=== PATIENT | female | born 1970 | race Caucasian/White ===

== ENCOUNTER → 2019-06-04 16:12 | Outpatient (CLI) | payer OTHER, SELFPAY ==
--- NOTE | ~2019-06-04 | XR_ITS ---
EXAMINATION: XR abdomen/kub 1V INDICATION: Calculus of kidney TECHNIQUE: Supine views of the abdomen were obtained on 2 radiographs. COMPARISON: 11/14/2018 FINDINGS: There is a 10 mm stone of the right kidney lower pole. No additional urinary tract calculi are identified. The bowel gas pattern is normal. Left pelvic phlebolith is noted. Cholecystectomy cli ps are present at the right upper quadrant. IMPRESSION: 1. Right nephrolithiasis. Reviewed, dictated and finalized at location A. IMPRESSION: 1. Right nephrolithiasis.
== END ==
PROVIDERS: PCP Family Medicine; Visit Provider Urology
DX: N20.0 Calculus of kidney (principal)
CPT/HCPCS: 74018

== ENCOUNTER 2019-06-25 09:46 | Outpatient (CLI) | payer OTHER, SELFPAY ==
[2019-06-25 10:05] LABS: Basophils Percent Auto 0.4 % (0.2-1.2); Eosinophils Absolute Auto 0.2 K/mm3 (0-0.3); Eosinophils Percent Auto 1.9 % (0-4.4); Hematocrit 39.2 % (37.0-47.0); Hemoglobin 12.4 g/dL (12.0-15.0); Immature Granulocyte Absolute 0.04 K/mm3 (0.00-0.031); Immature Granulocyte Percent A 0.4 % (0-0.5); Lymphocytes Percent Auto 26.6 % (18.3-44.2); Mean Corpuscular HGB Conc 31.6 g/dl (32-36); Mean Corpuscular Volume 91.8 fl (80-100); Mean Platelet Volume 10.4 fl (7.4-10.4); Monocytes Absolute Auto 0.8 K/mm3 (0.1-0.6); Neutrophils Absolute Auto 5.9 K/mm3 (1.3-6.7); Neutrophils Percent Auto 62.7 % (45.5-73.1); Platelet Count Result 269 k/mm3 (150-375); Red Blood Count 4.27 M/mm3 (4.2-5.4); Red Cell Distribution Width 13.7 % (11.5-14.5); White Blood Count 9.4 K/mm3 (4.5-10.0)
[2019-06-25 10:12] LABS: Hemoglobin A1C 10.7 % (<5.7)
[2019-06-25 10:20] LABS: Alanine Aminotransferase 22 U/L (4-35); Albumin Level 3.9 g/dL (3.5-5.1); Alkaline Phosphatase 116 U/L (38-126); Aspartate Amino Transferase 37 U/L (14-36); Bilirubin,Total 0.3 mg/dL (0.2-1.3); Blood Urea Nitrogen 12 mg/dL (7-17); Carbon Dioxide 26 mmol/L (22-30); Chloride 99 mmol/L (98-107); Cholesterol 183 mg/dL (0-200); Estimated Glomerular Filt Rate > 60; Glucose 237 mg/dL (65-105); HDL Direct 43 mg/dL; Potassium 4.3 mmol/L (3.4-5.0); Sodium 134 mmol/L (137-145); Triglycerides 226 mg/dL (<150)
[2019-06-25 10:31] LABS: LDL Cholesterol Direct 109 mg/dL
== END 2019-06-25 09:47 | disposition home or self-care (01) ==
PROVIDERS: PCP Family Medicine; Visit Provider Family Medicine
DX: E78.5 Hyperlipidemia, unspecified (principal); Z13.0 Encounter for screening for diseases of the blood and blood-forming organs and certain disorders involving the immune mechanism; E11.9 Type 2 diabetes mellitus without complications; E11.21 Type 2 diabetes mellitus with diabetic nephropathy; E03.8 Other specified hypothyroidism; E06.3 Autoimmune thyroiditis
CPT/HCPCS: 36415; 80053; 80061; 83036; 84443; 85025

== ENCOUNTER 2019-08-12 16:48 | Emergency (ER) | payer OTHER, SELFPAY ==
[2019-08-12] VITALS (9 sets, daily range): BP systolic 138–164; BP diastolic 72–95; PULSE 106–200; RESP 13–22; TEMP 36.7; O2SAT 94–100
--- NOTE | ~2019-08-12 | XR_ITS ---
EXAMINATION: XR chest 1V portable DATE: 08/12/2019 17:28 INDICATION: Supraventricular tachycardia with heart palpitations. TECHNIQUE: frontal view of the chest was obtained. COMPARISON: Chest radiograph dated 03/17/2013 FINDINGS: The lungs remain clear with no focal airspace opacities, pulmonary edema, pleural effusion or pneumot horax. The cardiomediastinal silhouette is normal. Visualized bones and soft tissues are unremarkable . IMPRESSION: 1. No acute cardiopulmonary disease. Reviewed, dictated and finalized at location A.
[2019-08-12] MEDS: ADENOSINE IV SOLN 6 MG/2 ML VIAL 18 MG (16:56)
--- NOTE | 2019-08-12 17:01 | ECG_ITS ---
Measurements Intervals [place] Rate: 128 P: 66 AR: 161 QRS: 19 QRSD: 103 T: -2 QT: 298 QTc: 436 Interpretive Statements SINUS TACHYCARDIA INCOMPLETE RIGHT BUNDLE BRANCH BLOCK BORDERLINE T WAVE ABNORMALITY- ANT/INF LEADS BASELINE ARTIFACT- II, III, AVF, V3, V6 ABNORMAL ECG Electronically Signed On 08-12-2019 17:14:21 CDT by Vamsi Troncoso D.O.
[2019-08-12] MEDS: SODIUM CHLORIDE 0.9% IV 1,000 ML 999 ML (17:03)
--- NOTE | 2019-08-12 17:07 | ED.CHESTPAIN ---
HPI - Chest Pain General Chief Complaint: Chest Pain Stated Complaint: chest pain Time Seen by Provider: 08/12/19 16:53 History of Present Illness HPI narrative: Patient presents to the ED, with her son, for fast heart rate. She has a history of SVT. She says it causes discomfort but not pain. Started an hour ago. She denies shortness of breath with this. She has a history of hypertension and diabetes. Her blood sugar runs between 150 and 170. She is not on insulin. 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 Related Data Home Medications Medication Instructions Recorded Confirmed losartan 100 mg tablet 100 mg PO DAILY 06/11/19 Allergies Allergy/AdvReac Type Severity Reaction Status Date / Time No Known Allergies Allergy Verified 08/12/19 17:03 Review of Systems Review of Systems: Narrative: CONSTITUTIONAL: Denies fever, chills, or sweats. EYES: Denies visual changes, redness, or discharge. ENT: Denies rhinorrhea, congestion, sore throat, or otalgia. CARDIOVASCULAR: Denies chest pain, but does have palpitations. RESPIRATORY: Denies cough or dyspnea. GASTROINTESTINAL: Denies abdominal pain, nausea, vomiting, or diarrhea. GENITOURINARY: Denies dysuria or hematuria. SKIN: Denies rash or itching. MUSCULOSKELETAL: Denies back pain, joint pain, or myalgia. NEUROLOGIC: Denies headache, numbness, or weakness. PSYCHIATRIC: Denies anxiety or depression. [facility] Past Medical History Medical History (Updated 08/12/19 @ 17:12 by Sandy Genao MD) Hyperlipidemia Nonalcoholic steatohepatitis ([place]) SVT (supraventricular tachycardia) Type 2 diabetes mellitus without complications Family History Family History Mother Hypertension Family history of rheumatoid arthritis Father Family history of colitis Family history of diabetes mellitus in first degree relative Family history of ulcerative colitis Family history of type 2 diabetes mellitus Grandparent Hypertension Family history of malignant neoplasm Family history of malignant melanoma Family history of malignant neoplasm of breast in first degree relative Family history of malignant neoplasm of ovary Social History Social History Smoking status: Never smoker Second hand tobacco smoke exposure: No Alcohol intake: current Gender identity (if verbalized by the patient): Female Exam Narrative: Exam Narrative: GENERAL: Well-appearing, well-nourished, and in no acute distress. Overweight HEAD: Normocephalic, atraumatic. EYES: PERRLA and EOMI. ENT: Nares clear, no rhinorrhea or epistaxis. Mucous membranes moist. NECK: Supple. CHEST: Clear to auscultation. No respiratory distress. HEART: Regular rate and rhythm. No murmur heard. Normal peripheral pulses. ABDOMEN: Soft, nontender, nondistended, normal active bowel sounds. EXTREMITIES: Normal range of motion. No edema. SKIN: Warm, dry, no rash. NEURO: No focal deficits. Alert and oriented x3. PSYCH: Normal mood and affect. Course Reevaluation(s) Reevaluation #1: She is feeling much better, and she thinks she may have had a little bit of SVT in the last couple years. She has not seen the wet sander for many years. She is on metoprolol for prevention. I recommend that she either follow-up with her old wet sander or see a new one here, and she would prefer to follow here. Her son will drive her home. She is not working currently and does not need a work note. Date: 08/12/19 Time: 17:59 Vital Signs Vital signs: Vital Signs Temperature 98.1 F 08/12/19 16:53 Pulse Rate 200 H 08/12/19 16:53 Respiratory Rate 18 08/12/19 16:53 Blood Pressure 138/95 H 08/12/19 16:53 Pulse Oximetry 94 08/12/19 16:53 Temperature 98.1 F 08/12/19 16:53 Pulse Rate 112 H 08/12/19 17:16 Respiratory Rate 19 08/12/19 17:16 Blood Pressure 143/83 H
--- NOTE | 2019-08-12 17:13 | PC.NURSE ---
Pt was washing dishes and watching the walking and started to feel dizzy, sweaty, and have chest pressure. Pt states she had SVT a couple years ago but refused ablation. Pt HR 220 on arrival. Pt given 12 adenosine and HR now 110. Pt states she no longer has pressure, palpitations, dizziness, or SOB. Pt is A&Ox4. Pt has family at bedside. Pt has call light in reach
[2019-08-12 17:22] LABS: Basophils Percent Auto 0.4 % (0.2-1.2); Eosinophils Absolute Auto 0.1 K/mm3 (0-0.3); Eosinophils Percent Auto 1.4 % (0-4.4); Hematocrit 43.9 % (37.0-47.0); Hemoglobin 14.1 g/dL (12.0-15.0); Immature Granulocyte Absolute 0.04 K/mm3 (0.00-0.031); Immature Granulocyte Percent A 0.4 % (0-0.5); Lymphocytes Absolute Auto 4.15 K/mm3 (0.9-3.2); Lymphocytes Percent Auto 40.1 % (18.3-44.2); Mean Corpuscular HGB Conc 32.1 g/dl (32-36); Mean Corpuscular Hemoglobin 29.2 pg (26-34); Mean Corpuscular Volume 90.9 fl (80-100); Mean Platelet Volume 10.5 fl (7.4-10.4); Monocytes Percent Auto 9.2 % (2.6-8.5); Neutrophils Percent Auto 48.5 % (45.5-73.1); Platelet Count Result 297 k/mm3 (150-375); Red Blood Count 4.83 M/mm3 (4.2-5.4); Red Cell Distribution Width 13.8 % (11.5-14.5); White Blood Count 10.3 K/mm3 (4.5-10.0)
[2019-08-12 17:30] LABS: Partial Thromboplastin Time 40.8 SECONDS (22.3-36.8)
[2019-08-12 17:34] LABS: Alanine Aminotransferase 22 U/L (4-35); Albumin Level 4.5 g/dL (3.5-5.1); Alkaline Phosphatase 149 U/L (38-126); Aspartate Amino Transferase 24 U/L (14-36); Bilirubin,Total 0.5 mg/dL (0.2-1.3); Blood Urea Nitrogen 13 mg/dL (7-17); Calcium 9.7 mg/dL (8.4-10.2); Carbon Dioxide 24 mmol/L (22-30); Chloride 102 mmol/L (98-107); Estimated CRCL calculation 129 ml/min; Estimated Glomerular Filt Rate > 60; Glucose 217 mg/dL (65-105); Potassium 3.7 mmol/L (3.4-5.0); Sodium 137 mmol/L (137-145)
[2019-08-12 17:45] LABS: NT Pro B Type Natriuretic Pept 102 PG/ML (5-100); Troponin I < 0.012 ng/mL (0.000-0.034)
== END 2019-08-12 18:16 | disposition home or self-care (01) ==
PROVIDERS: Emergency Provider Emergency Medicine; PCP Family Medicine
DX: I47.1 Supraventricular tachycardia (principal); I45.10 Unspecified right bundle-branch block; E78.5 Hyperlipidemia, unspecified; K75.81 Nonalcoholic steatohepatitis (NASH); E11.9 Type 2 diabetes mellitus without complications
CPT/HCPCS: 36415; 71045; 80053; 83880; 84484; 85025; 85610; 85730; 93005; 96361; 96374; 99284; J0153; J7030

== ENCOUNTER 2019-08-23 14:20 | Outpatient (CLI) | payer OTHER, SELFPAY ==
[2019-08-23 16:20] LABS: Magnesium 1.9 mg/dL (1.6-2.3)
[2019-08-23 16:49] LABS: Free T4 Free Thyroxine 1.99 ng/mL (0.78-2.19)
[2019-08-27 12:35] LABS: Triiodothyronine T3 Free 2.7 pg/mL (2.3-4.2)
== END 2019-08-23 14:21 | disposition home or self-care (01) ==
PROVIDERS: PCP Family Medicine; Visit Provider Family Medicine
DX: E03.9 Hypothyroidism, unspecified (principal); I47.1 Supraventricular tachycardia
CPT/HCPCS: 36415; 83735; 84439; 84443; 84481

== ENCOUNTER 2019-11-14 07:05 | Outpatient (CLI) | payer OTHER, SELFPAY ==
[2019-11-14 08:09] LABS: Alanine Aminotransferase 15 U/L (4-35); Albumin Level 3.8 g/dL (3.5-5.1); Alkaline Phosphatase 111 U/L (38-126); Anion Gap 7 mmol/L (8-16); Aspartate Amino Transferase 19 U/L (14-36); Bilirubin,Total 0.3 mg/dL (0.2-1.3); Blood Urea Nitrogen 11 mg/dL (7-17); Calcium 8.8 mg/dL (8.4-10.2); Carbon Dioxide 25 mmol/L (22-30); Chloride 103 mmol/L (98-107); Cholesterol 153 mg/dL (0-200); Estimated Glomerular Filt Rate > 60; Glucose 189 mg/dL (65-105); HDL Direct 42 mg/dL; Potassium 4.2 mmol/L (3.4-5.0); Sodium 135 mmol/L (137-145); Triglycerides 171 mg/dL (<150)
[2019-11-14 08:19] LABS: LDL Cholesterol Direct 80 mg/dL
== END 2019-11-14 07:06 | disposition home or self-care (01) ==
LOC: ANHLAB 07:07
PROVIDERS: PCP Family Medicine; Visit Provider Internal Medicine Cardiovascular Disease
DX: E78.5 Hyperlipidemia, unspecified (principal)
CPT/HCPCS: 36415; 80053; 80061

== ENCOUNTER 2020-04-24 20:02 | Emergency (ER) | payer OTHER, SELFPAY ==
--- NOTE | ~2020-04-24 | XR_ITS ---
EXAMINATION: XR chest 2V DATE: 04/24/2020 20:47 INDICATION: Palpitations. TECHNIQUE: Frontal and lateral views of the chest were obtained. COMPARISON: Chest single view 08/12/2019 FINDINGS: The chest demonstrates clear lungs without pneumonia, pleural effusion, or pneumothorax. Th e heart size is normal. Surgical clips in the right upper quadrant are likely from cholecystectomy. IMPRESSION: 1. No acute cardiopulmonary disease. Reviewed, dictated and finalized at location A.
[2020-04-24 20:05] VITALS: BP 190/101; PULSE 210; RESP 26; TEMP 36.1; O2SAT 99
[2020-04-24 20:10] VITALS: BP 173/108; PULSE 126; RESP 18; O2SAT 99
--- NOTE | 2020-04-24 20:11 | ECG_ITS ---
Measurements Intervals [place] Rate: 121 P: 20 FL: 158 QRS: 28 QRSD: 102 T: 30 QT: 301 QTc: 428 Interpretive Statements SINUS TACHYCARDIA INCOMPLETE RIGHT BUNDLE BRANCH BLOCK BORDERLINE ST ABNORMALITY- ANTEROLATERAL LEADS BASELINE ARTIFACT- II, III, AVF ABNORMAL ECG Electronically Signed On 04-24-2020 21:19:10 [employer] by Vamsi Troncoso D.O.
[2020-04-24 20:20] LABS: Basophils Absolute Auto 0.1 K/mm3 (0.0-0.1); Basophils Percent Auto 0.5 % (0.2-1.2); Eosinophils Absolute Auto 0.4 K/mm3 (0-0.3); Hematocrit 49.3 % (37.0-47.0); Immature Granulocyte Absolute 0.03 K/mm3 (0.00-0.031); Immature Granulocyte Percent A 0.2 % (0-0.5); Lymphocytes Absolute Auto 4.82 K/mm3 (0.9-3.2); Lymphocytes Percent Auto 40.1 % (18.3-44.2); Mean Corpuscular HGB Conc 32.5 g/dl (32-36); Mean Corpuscular Hemoglobin 29.5 pg (26-34); Mean Corpuscular Volume 90.8 fl (80-100); Mean Platelet Volume 10.1 fl (7.4-10.4); Monocytes Percent Auto 8.1 % (2.6-8.5); Neutrophils Absolute Auto 5.8 K/mm3 (1.3-6.7); Neutrophils Percent Auto 48.1 % (45.5-73.1); Platelet Count Result 264 k/mm3 (150-375); Red Blood Count 5.43 M/mm3 (4.2-5.4); Red Cell Distribution Width 14.3 % (11.5-14.5)
[2020-04-24 20:29] LABS: INR 0.9; Prothrombin Time 12.4 Seconds (11.1-14.7)
[2020-04-24 20:30] LABS: Partial Thromboplastin Time 27.5 SECONDS (22.3-36.8)
[2020-04-24 20:34] LABS: Anion Gap 12 mmol/L (8-16); Blood Urea Nitrogen 15 mg/dL (7-17); Calcium 9.6 mg/dL (8.4-10.2); Carbon Dioxide 23 mmol/L (22-30); Chloride 103 mmol/L (98-107); Estimated CRCL calculation 141 ml/min; Estimated Glomerular Filt Rate > 60; Glucose 153 mg/dL (65-105); Potassium 3.4 mmol/L (3.4-5.0); Sodium 138 mmol/L (137-145)
[2020-04-24 20:45] LABS: Troponin I < 0.012 ng/mL (0.000-0.034)
[2020-04-24] MEDS: ASPIRIN 81 MG CHEWABLE TABLET 324 MG PO (20:56)
[2020-04-24] MEDS: SODIUM CHLORIDE 0.9% IV 1,000 ML 999 ML IV CONT (20:56)
[2020-04-24 21:00] VITALS: BP 145/89; PULSE 108; RESP 16; O2SAT 95
--- NOTE | 2020-04-24 21:27 | ED.ARRPALP ---
HPI - Arrhythmia/Palpitations General Chief Complaint: Arrhythmia/Palpitations Stated Complaint: rapid heart rate/ SVT history Time Seen by Provider: 04/24/20 20:16 History of Present Illness HPI narrative: Patient is a 50-year-old female who presents ER with racing the heart. Patient has history of SVT. She reports that her heart rate was going into the 200s and this began around 7:30 PM. Lasted for about an hour. Was still persisting when she arrived here. [place] like she was having central chest pressure. Denies overuse of stimulant medication or caffeine. Takes metoprolol and reports she did take a little bit later in the day than what is normal for her. She has no runny nose/sore throat/productive cough. No other issues. Related Data Home Medications Medication Instructions Recorded Confirmed aspirin 81 mg tablet,delayed 81 mg PO DAILY 09/12/19 12/05/19 release vitamins A,C,V-xxev-nmsrzg 7,160 2 tablet PO BID 09/12/19 12/05/19 unit-113 mg-100 unit tablet ethynodiol diacetate-ethinyl 1 tablet PO DAILY 11/14/19 12/05/19 estradiol 1 mg-35 mcg tablet omega-3 fatty acids 1,000 mg 1,000 mg PO DAILY 11/14/19 12/05/19 capsule Allergies Allergy/AdvReac Type Severity Reaction Status Date / Time KAREN Inhibitors Allergy angioedema Verified 04/24/20 20:11 Review of Systems Review of Systems: All systems reviewed & are unremarkable except as noted in HPI and below Constitutional: Constitutional: Denies chills, Denies fever(s) and Denies weakness ENT: Denies nasal congestion and Denies sore throat Cardiovascular: Cardiovascular: Reports chest pain, Reports rapid heart rate and Denies radiating jaw, neck or arm pain Respiratory: Respiratory: Denies cough, Denies dyspnea and Denies wheezing [facility] Past Medical History Medical History (Updated 04/24/20 @ 22:33 by Oumar Singleton MD) Hyperlipidemia Nonalcoholic steatohepatitis ([place]) SVT (supraventricular tachycardia) Type 2 diabetes mellitus without complications Family History Family History Mother Hypertension Family history of rheumatoid arthritis Father Family history of colitis Family history of diabetes mellitus in first degree relative Family history of ulcerative colitis Family history of type 2 diabetes mellitus Grandparent Hypertension Family history of malignant neoplasm Family history of malignant melanoma Family history of malignant neoplasm of breast in first degree relative Family history of malignant neoplasm of ovary Social History Social History Smoking status: Former smoker Second hand tobacco smoke exposure: No Alcohol intake: current Gender identity (if verbalized by the patient): Female Exam Narrative: Exam Narrative: GENERAL: Well-appearing, well-nourished, and in no acute distress. HEAD: Normocephalic, atraumatic. CHEST: Clear to auscultation. No respiratory distress. HEART: Tachycardic and regular. Normal peripheral pulses. ABDOMEN: Soft, nontender, nondistended. EXTREMITIES: Normal range of motion. No edema. SKIN: Warm, dry, no rash. NEURO: Alert and oriented x3. PSYCH: Normal mood and affect. Course Course Emergency Course: Discussed with Dr. Troncoso. D/c. Start metoprolol 100mg daily. Pt verbalized understanding an has enough meds to do this w/o a refill. Vital Signs Vital signs: Vital Signs Temperature 96.9 F L 04/24/20 20:05 Pulse Rate 210 H 04/24/20 20:05 Respiratory Rate 26 H 04/24/20 20:05 Blood Pressure 190/101 H 04/24/20 20:05 Pulse Oximetry 99 04/24/20 20:05 Temperature 96.9 F L 04/24/20 20:05 Pulse Rate 104 H 04/24/20 22:12 Respiratory Rate 17 04/24/20 22:12 Blood Pressure 126/88 04/24/20 22:12 Pulse Oximetry 96 04/24/20 22:12 MDM - Arrhythmia/Palpitations Lab Data Result diagrams: 04/24/20 20:15 04/24/20 20:15
[2020-04-24 22:12] VITALS: BP 126/88; PULSE 104; RESP 17; O2SAT 96
[2020-04-24 22:51] VITALS: BP 138/74; PULSE 98; RESP 16; O2SAT 99
== END 2020-04-24 22:51 | disposition home or self-care (01) ==
PROVIDERS: Emergency Medicine; Emergency Provider Emergency Medicine; PCP Family Medicine
DX: I47.1 Supraventricular tachycardia (principal); E78.5 Hyperlipidemia, unspecified; K75.81 Nonalcoholic steatohepatitis (NASH); E11.9 Type 2 diabetes mellitus without complications; Z87.891 Personal history of nicotine dependence; Z79.82 Long term (current) use of aspirin; I45.10 Unspecified right bundle-branch block; R94.31 Abnormal electrocardiogram [ECG] [EKG]
CPT/HCPCS: 36415; 71046; 80048; 84484; 85025; 85610; 85730; 93005; 96360; 99284; A9270; J7030

== ENCOUNTER 2020-06-23 15:46 | Outpatient (CLI) | payer OTHER, SELFPAY ==
--- NOTE | ~2020-06-23 | MM_ITS ---
EXAMINATION: MM screening delma BI w chiquita HISTORY: Screening mammogram TECHNIQUE: Craniocaudal and mediolateral oblique 3-D tomosynthesis images were obtained and synthetic 2-D images were generated. CAD analysis was submitted and interpreted. COMPARISON: 05/08/2018 diagnostic right mammogram and limited right breast ultrasound 10/11/2017 diagnostic right mammogram and limited right breast ultrasound 09/26/2017 bilateral digital screening mammogram BREAST PARENCHYMAL COMPOSITION: There are scattered areas of fibroglandular density. FINDINGS: Approximately 5 x 7 mm circumscribed low-density opacity in the outer mid left breast poste riorly, likely a benign intramammary lymph node, stable since 09/26/2017. There is question of mildly increased density in the outer right breast on craniocaudal view; diagnos tic right mammogram is recommended, with ultrasound if required. There is no evidence of suspicious mass, calcification, or architectural distortion to suggest malign janine in either breast. There has been no suspicious interval change. IMPRESSION: 1. Right breast possible mildly increased outer breast density on CC view. 2. Diagnostic right mammogram is recommended, with ultrasound if required. BI-RADS Category 0: Incomplete: Needs additional imaging evaluation. Reviewed, dictated and finalized at location A.
== END 2020-06-23 15:47 | disposition home or self-care (01) ==
PROVIDERS: PCP Family Medicine; Visit Provider Obstetrics & Gynecology
DX: Z12.31 Encounter for screening mammogram for malignant neoplasm of breast (principal); R92.8 Other abnormal and inconclusive findings on diagnostic imaging of breast
CPT/HCPCS: 77063; 77067

== ENCOUNTER 2020-07-16 13:06 | Outpatient (CLI) | payer OTHER, SELFPAY ==
--- NOTE | ~2020-07-16 | MMUS_ITS ---
EXAMINATION: MM diagnostic mammo unilat RT, US breast RT complete HISTORY: Follow-up right breast asymmetry TECHNIQUE: Additional 3-D tomosynthesis images of the right breast were performed and synthetic 2-D i mages were generated. CAD analysis was submitted and interpreted. High resolution complete right mehdi st ultrasound was performed. COMPARISON: Comparison to multiple prior studies sequentially, with oldest reviewed study dated 09/26. BREAST PARENCHYMAL COMPOSITION: The breasts are heterogenously dense, which may obscure small masses. FINDINGS: MAMMOGRAPHIC FINDINGS: Focal asymmetry in the upper outer quadrant of the left breast is less dense with spot compression vi ews, most likely superimposed fibroglandular tissue. No discrete mass or architectural distortion. No suspicious calcifications. ULTRASOUND: Complete right breast ultrasound: At 3:00, 2 cm from the nipple, there is a 3 mm cyst. No suspicious solid masses are identified to suggest malignancy. IMPRESSION: 1. No evidence for malignancy in the right breast. 2. Routine yearly screening mammogram and regular clinical breast examination are recommended. BI-RADS Category 2: Benign finding(s). Reviewed, dictated and finalized at location A. IMPRESSION: 1. No evidence for malignancy in the right breast. 2. Routine yearly screening mammogram and regular clinical breast examination a re recommended. BI-RADS Category 2: Benign finding(s).
== END 2020-07-16 13:07 | disposition home or self-care (01) ==
PROVIDERS: PCP Family Medicine; Visit Provider Family Medicine
DX: R92.8 Other abnormal and inconclusive findings on diagnostic imaging of breast (principal)
CPT/HCPCS: 76641; 77065

== ENCOUNTER 2020-08-17 09:12 | Outpatient (CLI) | payer OTHER, SELFPAY ==
--- NOTE | 2020-09-07 13:18 | WPDHOMESLEEP ---
Sleep Study - Home Unattended Date of Study: 08/17/20 Ordering Provider: Vamsi Troncoso DO Interpreting Provider: Delmy Hooks MD Home Sleep Study Type: Watch PAT Height: 1.7 m Weight: 115.666 kg Body Mass Index: 39.9 Neck Circumference (inches): 15.75 [place]: 10 Reason for Sleep Study Hypersomnia; SVT Sleep History Radha Spencer is a 50 year old female with supraventricular tachycardia and she is referred by her complaint coordinator. There is a family history of sleep apnea with her brother diagnosed several months ago. She does not awaken from sleep feeling short of breath. She rarely awakens at night with heartburn, belching or coughing. She occasionally snores. Rarely it is loud enough for others to complain about it. She occasionally has trouble sleep with a cold. She does not wake up gasping for breath at night and does not have breathing problems at night observed by others. She rarely sweats excessively at night. She does not notice her heart pounding or beating irregularly at night. She occasionally falls asleep during the day, never falls asleep involuntarily and never falls asleep while driving. She does not have loss of muscle tone with strong emotion. She rarely has daytime difficulties due to excessive sleepiness. She does not feel paralyzed on waking or falling asleep. She frequently has vivid dreamlike scenes upon awakening or falling asleep. She does not feel afraid to go to sleep. She occasionally has nightmares, remembers her dreams, and has racing thoughts. She does not feel sad or depressed. She occasionally has anxiety. She rarely has muscular tension. She does not notice parts of her body jerking. She rarely kicks at night. She does not have crawling and aching feelings in her legs. She rarely has any kind of leg pain at night. She does not have morning jaw pain. She does not currently grind her teeth. She did this in childhood. She occasionally has bothered by pain during the day, rarely awakened by pain at night. She frequently wakes up feeling stiff in the morning rarely with sore achy muscles, occasionally with pain in the neck and spine. She has bowel disturbances. Normal bedtime is between 11:00 p.m. and 11:30 p.m. taking a 1/2 hour to fall asleep typically waking 3-4 times at night to use the bathroom and change positions. She is able to return to sleep and 10 minutes but sometimes is takes up to an hour. Her weekend schedule shows the same bedtime 11:00 p.m. to 11:30 p.m. and waking between 8 and 9:00 a.m.. She estimates getting between 6 and 7 hours of sleep at night. She occasionally takes a nap in the day. She may feel refreshed after short nap. Most of the times he feels good in the morning. She feels better in the morning compared other times of day. Habits: Caffeine 1-2 per day. Alcohol socially and rarely. No recreational substance use. [facility] Past Medical History Medical History (Updated 09/07/20 @ 13:46 by Delmy Hooks MD) Hyperlipidemia Hypersomnia Nonalcoholic steatohepatitis ([place]) SVT (supraventricular tachycardia) Type 2 diabetes mellitus without complications Surgical History Surgical History Cholecystitis H/O dilation and curettage Kidney stones Family History Family History Mother Hypertension Family history of rheumatoid arthritis Father Family history of colitis Family history of diabetes mellitus in first degree relative Family history of ulcerative colitis Family history of type 2 diabetes mellitus Grandparent Hypertension Family history of malignant neoplasm Family history of malignant melanoma Family history of malignant neoplasm of breast in first degree relative Family history of malignant neoplasm of ovary Social History Social History Smoking status: Former smo
[2020-09-07 13:50] VITALS: BMI 39.9
== END 2020-08-18 11:38 | disposition home or self-care (01) ==
LOC: ANHCSM 09:14
PROVIDERS: PCP Family Medicine; Visit Provider Internal Medicine Cardiovascular Disease
DX: G47.10 Hypersomnia, unspecified (principal)
CPT/HCPCS: 95800

== ENCOUNTER 2021-05-24 08:05 | Outpatient (CLI) | payer OTHER, SELFPAY ==
[2021-05-24 08:36] LABS: Cholesterol 205 mg/dL (0-200); HDL Direct 43 mg/dL; Triglycerides 211 mg/dL (<150)
[2021-05-24 08:47] LABS: LDL Cholesterol Direct 124 mg/dL
== END 2021-05-24 08:06 | disposition home or self-care (01) ==
LOC: ANHLAB 08:08
PROVIDERS: PCP Family Medicine; Visit Provider Internal Medicine Cardiovascular Disease
DX: E78.5 Hyperlipidemia, unspecified (principal)
CPT/HCPCS: 36415; 80061

== ENCOUNTER 2021-06-12 10:17 | Outpatient (CLI) | payer OTHER, SELFPAY ==
[2021-06-12 10:52] LABS: Basophils Percent Auto 0.4 % (0.2-1.2); Eosinophils Absolute Auto 0.1 K/mm3 (0-0.3); Eosinophils Percent Auto 1.3 % (0-4.4); Hematocrit 45.8 % (37.0-47.0); Hemoglobin 14.7 g/dL (12.0-15.0); Immature Granulocyte Absolute 0.02 K/mm3 (0.00-0.031); Immature Granulocyte Percent A 0.3 % (0-0.5); Lymphocytes Absolute Auto 2.59 K/mm3 (0.9-3.2); Lymphocytes Percent Auto 34.4 % (18.3-44.2); Mean Corpuscular HGB Conc 32.1 g/dl (32-36); Mean Corpuscular Hemoglobin 29.9 pg (26-34); Mean Corpuscular Volume 93.3 fl (80-100); Mean Platelet Volume 10.1 fl (7.4-10.4); Monocytes Absolute Auto 0.9 K/mm3 (0.1-0.6); Monocytes Percent Auto 11.3 % (2.6-8.5); Neutrophils Percent Auto 52.3 % (45.5-73.1); Platelet Count Result 275 k/mm3 (150-375); Red Blood Count 4.91 M/mm3 (4.2-5.4); Red Cell Distribution Width 13.8 % (11.5-14.5); White Blood Count 7.5 K/mm3 (4.5-10.0)
[2021-06-12 11:05] LABS: Hemoglobin A1C 7.5 % (<5.7)
[2021-06-12 11:07] LABS: Alanine Aminotransferase 60 U/L (4-35); Albumin Level 4.5 g/dL (3.5-5.1); Alkaline Phosphatase 92 U/L (38-126); Anion Gap 7 mmol/L (8-16); Aspartate Amino Transferase 52 U/L (14-36); Bilirubin,Total 0.4 mg/dL (0.2-1.3); Blood Urea Nitrogen 14 mg/dL (7-17); Calcium 8.9 mg/dL (8.4-10.2); Carbon Dioxide 27 mmol/L (22-30); Chloride 103 mmol/L (98-107); Cholesterol 190 mg/dL (0-200); Estimated Glomerular Filt Rate > 60; Glucose 163 mg/dL (65-110); HDL Direct 48 mg/dL; Potassium 4.2 mmol/L (3.4-5.0); Sodium 137 mmol/L (137-145); Triglycerides 170 mg/dL (<150)
[2021-06-12 11:17] LABS: LDL Cholesterol Direct 99 mg/dL
[2021-06-12 11:28] LABS: Creatinine Urine 42.1 mg/dL
[2021-06-12 11:32] LABS: MALB Creatinine Ratio 25.9 mg/g (0-30); Microalbumin Urine Random 10.9 mg/L (0-16.7)
[2021-06-12 11:36] LABS: Thyroid Stimulating Hormone 0.363 uIU/mL (0.465-4.680)
== END 2021-06-12 10:18 | disposition home or self-care (01) ==
LOC: ANHLAB 10:19
PROVIDERS: PCP Family Medicine; Visit Provider Family Medicine
DX: E78.5 Hyperlipidemia, unspecified (principal); D72.829 Elevated white blood cell count, unspecified
CPT/HCPCS: 36415; 80053; 80061; 82043; 83036; 84443; 85025

== ENCOUNTER 2021-10-06 08:38 | Outpatient (CLI) | payer OTHER, SELFPAY ==
[2021-10-06 19:42] LABS: Urine Cotinine NEGATIVE
== END 2021-10-06 08:39 | disposition home or self-care (01) ==
LOC: ANHEH 08:40
PROVIDERS: PCP Family Medicine
DX: Z02.1 Encounter for pre-employment examination (principal)
CPT/HCPCS: 80307

== ENCOUNTER 2021-10-22 13:23 | Outpatient (CLI) | payer OTHER, SELFPAY ==
--- NOTE | ~2021-10-22 | MM_ITS ---
EXAMINATION: MM screening delma BI w chiquita HISTORY: Screening TECHNIQUE: Craniocaudal and mediolateral oblique 3-D tomosynthesis images were obtained and synthetic 2-D images were generated. CAD analysis was submitted and interpreted. COMPARISON: No prior mammogram is available for comparison at this institution. BREAST PARENCHYMAL COMPOSITION: There are scattered areas of fibroglandular density. FINDINGS: There is no evidence of suspicious mass, calcification, or architectural distortion to sugg est malignancy in either breast. There has been no suspicious interval change. IMPRESSION: 1. No mammographic evidence of malignancy. 2. Recommend routine screening mammography in one year. BI-RADS Category 1: Negative Reviewed, dictated and finalized at location A.
== END 2021-10-22 13:24 | disposition home or self-care (01) ==
LOC: ANHIMG 13:28
PROVIDERS: PCP Family Medicine; Visit Provider Obstetrics & Gynecology
DX: Z12.31 Encounter for screening mammogram for malignant neoplasm of breast (principal)
CPT/HCPCS: 77063; 77067

== ENCOUNTER 2021-11-16 08:31 | Outpatient (CLI) | payer OTHER, SELFPAY ==
[2021-11-16 09:12] LABS: Alanine Aminotransferase 27 U/L (6-35); Alanine Aminotransferase 28 U/L (6-35); Alkaline Phosphatase 102 U/L (38-126); Alkaline Phosphatase 104 U/L (38-126); Anion Gap 10 mmol/L (8-16); Aspartate Amino Transferase 32 U/L (14-36); Aspartate Amino Transferase 33 U/L (14-36); Bilirubin,Total 0.4 mg/dL (0.2-1.3); Blood Urea Nitrogen 12 mg/dL (7-17); Calcium 8.7 mg/dL (8.4-10.2); Carbon Dioxide 24 mmol/L (22-30); Chloride 103 mmol/L (98-107); Cholesterol 172 mg/dL (0-200); Estimated Glomerular Filt Rate > 60; Glucose 204 mg/dL (65-110); HDL Direct 45 mg/dL; Potassium 4.2 mmol/L (3.4-5.0); Sodium 137 mmol/L (137-145); Triglycerides 194 mg/dL (<150)
[2021-11-16 09:23] LABS: LDL Cholesterol Direct 99 mg/dL
== END 2021-11-16 08:32 | disposition home or self-care (01) ==
PROVIDERS: PCP Family Medicine; Visit Provider Internal Medicine Cardiovascular Disease
DX: E78.5 Hyperlipidemia, unspecified (principal); R94.5 Abnormal results of liver function studies
CPT/HCPCS: 36415; 80053; 80061; 80076

== ENCOUNTER 2022-05-23 09:45 | Outpatient (CLI) | payer OTHER, SELFPAY ==
[2022-05-23 14:13] LABS: Hemoglobin A1C 8.2 % (<5.7)
== END 2022-05-23 09:46 | disposition home or self-care (01) ==
LOC: ANHLAB 09:47
PROVIDERS: PCP Family Medicine; Visit Provider Family Medicine
DX: E03.8 Other specified hypothyroidism (principal); E06.9 Thyroiditis, unspecified; E11.9 Type 2 diabetes mellitus without complications
CPT/HCPCS: 36415; 83036; 84443

== ENCOUNTER 2022-09-19 02:55 | Day surgery (SDC) | payer OTHER, SELFPAY ==
[2022-09-07 09:42] VITALS: BMI 37.6
--- NOTE | 2022-09-16 17:43 | WPDANESEPP ---
Anes - Eval Pre Procedure Procedure: Operation Date: 09/19/22 08:30 Proposed Procedures p Screening Colonoscopy - Blayne Ring MD Date/Time: 09/16/22 17:43 Pre Op Diagnosis: neoplasm screening Patient Data Age: 52 Gender: F Height: 1.7 m Weight: 109 kg Allergies Allergy/AdvReac Type Severity Reaction Status Date / Time KAREN Inhibitors Allergy Unknown angioedema Verified 09/07/22 09:43 Home Medications Medication Instructions Recorded Confirmed Type aspirin 81 mg tablet,delayed 81 mg PO DAILY 09/12/19 09/07/22 History release (Adult Low Dose Aspirin) vitamins A,C,Q-tazt-tbrejc 2,148 2 tablet PO BID 09/12/19 09/07/22 History mcg-113 mg-45 mg-17.4 mg tablet (PreserVision AREDS) ethynodiol diacetate-ethinyl 1 tablet PO DAILY 11/14/19 09/07/22 History estradiol 1 mg-35 mcg tablet (Kelnor) omega-3 fatty acids 1,000 mg 1,000 mg PO BID 11/14/19 09/07/22 History capsule (Fish Oil Concentrate) lancets 33 gauge (RUNTouch Delica #100 ea 10/11/21 05/23/22 Rx Plus Lancet) blood sugar diagnostic (OneTouch #100 strips 10/13/21 05/23/22 Rx Verio test strips) levothyroxine 175 mcg tablet 175 mcg PO DAILY #90 tabs 03/09/22 09/07/22 Rx amlodipine 2.5 mg tablet 2.5 mg PO DAILY 09/07/22 09/07/22 History cholecalciferol (vitamin D3) 25 25 mcg PO DAILY 09/07/22 09/07/22 History mcg (1,000 unit) capsule (Vitamin D3) guar gum 1 tbsp PO DAILY 09/07/22 09/07/22 History metoprolol succinate 100 mg 100 mg PO DAILY 09/07/22 09/07/22 History tablet,extended release 24 hr pravastatin 10 mg tablet 10 mg PO DAILY 09/07/22 09/07/22 History sitagliptin phos 100 mg-metformin 1 tablet PO DAILY 09/07/22 09/07/22 History ER 1,000 mg tablet,extend rel 24h mp (Janumet XR) semaglutide 1 mg/dose (4 mg/3 mL) See Rx Instructions .Route 09/09/22 Rx subcutaneous pen injector (Ozempic) .COMPLEX #3 mL empagliflozin 25 mg tablet 25 mg PO DAILY #90 tabs 09/14/22 Rx (Jardiance) Patient hx anesthesia problems: post op nausea/vomiting Family hx anesthesia problems: none Results Review: All pre-operative results and documents have been reviewed as part of the pre-operative evaluation. 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 Macular degeneration Nonalcoholic steatohepatitis ([place]) Obesity PSVT (paroxysmal supraventricular tachycardia) SVT (supraventricular tachycardia) Type 2 diabetes mellitus without complications Weight loss counseling, encounter for Surgical History Surgical History Cholecystitis H/O dilation and curettage Kidney stones Family History Family History Mother Hypertension Family history of rheumatoid arthritis Father Family history of colitis Family history of diabetes mellitus in first degree relative Family history of ulcerative colitis Family history of type 2 diabetes mellitus Grandparent Hypertension Family history of malignant neoplasm Family history of malignant melanoma Family history of malignant neoplasm of breast in first degree relative Family history of malignant neoplasm of ovary Social History Social History (Updated 07/05/22 @ 12:59 by Shawna Kumar) Smoking status: Former smoker Tobacco type: cigarettes Second hand tobacco smoke exposure: No Alcohol intake: current Drinks per week: 2 Alcohol use details: rarely Substance use: never Substance use type: does not use Lack of Transportation: No Lack of Food: Never True Current Housing: I Have Housing Concerned About Future Housing: No Difficulty Paying Gas/Electric Bills: No Difficulty Paying for Meds: No Currently Unemployed: No Difficult
[2022-09-19 07:15] VITALS: BP 151/71; PULSE 99; RESP 18; TEMP 36.3; O2SAT 99; BMI 37.8
[2022-09-19] MEDS: LACTATED RINGERS 1,000 ML 150 ML IV CONT (07:35)
[2022-09-19 07:37] LABS: Glucose Point of Care 167 mg/dl (65-105)
--- NOTE | 2022-09-19 08:03 | P.PNAN_ITS ---
Anes - Eval Final PreProcedure Day of Procedure 09/19/22 08:03 Patient weight: obese Heart: regular rate and rhythm Lungs: clear to auscultation Airway: Mallampati scale class III Neurological: alert and oriented Last oral intake: >/= 8 hours ASA classification: III Emergent: no Anesthetic plan: proceed Anesthesia type and monitoring: general GIVS and standard monitoring Results Review: All pre-operative results and documents have been reviewed as part of the pre- operative evaluation. Informed Consent: The patient's anesthetic plan and its attendant risks and benefits were discussed with the patient/family/POA. Questions were solicited and answers provided to the satisfaction of the patient/family/POA.
--- NOTE | 2022-09-19 08:19 | PM.HPGS ---
History of Present Illness History of Present Illness Consent: Risks, benefits, and alternatives have been discussed and questions answered. Patient agrees to proceed with procedure. Chief complaint: neoplasm screening Narrative: Radha Spencer is a 52 year old female here for first screening colonoscopy Review of Systems Constitutional: Constitutional: Denies headache(s) and Denies weakness Eyes: Eyes: Denies blurry vision ENT: Reports Normal hearing present, Denies headache(s) and Denies neck pain Cardiovascular: Cardiovascular: Denies chest pain and Denies dyspnea Respiratory: Respiratory: Denies dyspnea Gastrointestinal: Gastrointestinal: Reports no additional gastrointestinal complaints Genitourinary: Genitourinary: Denies dysuria Musculoskeletal: Musculoskeletal: Denies neck pain Integumentary/Breasts: Skin/Breast: Denies dry skin Neurologic: Reports Normal hearing present, Denies headache(s) and Denies weakness Psychiatric: Psychiatric: Denies anxiety Endocrine: Endocrine: Denies change in body appearance Hematologic/Lymphatic: Hematologic/Lymphatic: Denies easy bleeding Allergic/Immunologic: Allergic/Immunologic: Denies urticaria PMFSH Past Medical History Medical History (Updated 09/19/22 @ 08:20 by Blayne Ring MD) Body mass index (BMI) 40.0-44.9, adult (09/08/16) Colon cancer screening Hyperlipidemia Hypersomnia Hypertension 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 Macular degeneration Nonalcoholic steatohepatitis ([place]EN) Obesity PSVT (paroxysmal supraventricular tachycardia) SVT (supraventricular tachycardia) Type 2 diabetes mellitus without complications Weight loss counseling, encounter for Surgical History Surgical History Cholecystitis H/O dilation and curettage Kidney stones Family History Family History Mother Hypertension Family history of rheumatoid arthritis Father Family history of colitis Family history of diabetes mellitus in first degree relative Family history of ulcerative colitis Family history of type 2 diabetes mellitus Grandparent Hypertension Family history of malignant neoplasm Family history of malignant melanoma Family history of malignant neoplasm of breast in first degree relative Family history of malignant neoplasm of ovary Social History Social History (Updated 07/05/22 @ 12:59 by Shawna Kumar) Smoking status: Former smoker Tobacco type: cigarettes Second hand tobacco smoke exposure: No Alcohol intake: current Drinks per week: 2 Alcohol use details: rarely Substance use: never Substance use type: does not use Lack of Transportation: No Lack of Food: Never True Current Housing: I Have Housing Concerned About Future Housing: No Difficulty Paying Gas/Electric Bills: No Difficulty Paying for Meds: No Currently Unemployed: No Difficulty w/ Childcare or Family Care: No Living arrangements: with family Occupation/Education: occupation Gender identity (if verbalized by the patient): Female Sexual Orientation (if Verbalized by the Patient): Straight or Heterosexual Spiritual care concerns: No Agree to blood products: Yes Meds Home Medications and Allergies Home Medications Medication Instructions Recorded Confirmed Type aspirin 81 mg tablet,delayed 81 mg PO DAILY 09/12/19 09/19/22 History release (Adult Low Dose Aspirin) vitamins A,C,V-jffs-zjtkth 2,148 2 tablet PO BID 09/12/19 09/19/22 History mcg-113 mg-45 mg-17.4 mg tablet (PreserVision AREDS) ethynodiol diacetate-ethinyl 1 tablet PO DAILY 11/14/19 09/19/22 History estradiol 1 mg-35 mcg tablet (Kelnor) omega-3 fatty acids 1,000 mg 1,000 mg PO BID 11/14/19 09/19/22 History capsule (Fish Oil Concentrate) lancets 33 gauge (OneTouch Deljono #100 ea 10/11/21 09/19/22 Rx Plu
[2022-09-19 08:41] VITALS: BP 118/70; PULSE 93; RESP 20; O2SAT 98
[2022-09-19 08:51] VITALS: BP 124/78; PULSE 87; RESP 16; O2SAT 100
[2022-09-19 09:01] VITALS: BP 131/79; PULSE 89; RESP 22; O2SAT 100
== END 2022-09-19 09:04 | disposition home or self-care (01) ==
PROVIDERS: PCP Family Medicine; Visit Provider Internal Medicine Gastroenterology
PROC: 0DJD8ZZ Inspection of Lower Intestinal Tract, Via Natural or Artificial Opening Endoscopic (ICD-10-PCS; CPT 45378; principal; 2022-09-19 08:30)
DX: Z12.11 Encounter for screening for malignant neoplasm of colon (principal); K64.8 Other hemorrhoids; E78.5 Hyperlipidemia, unspecified; G47.10 Hypersomnia, unspecified; I10 Essential (primary) hypertension; E06.3 Autoimmune thyroiditis; H35.30 Unspecified macular degeneration; I47.1 Supraventricular tachycardia; Z87.891 Personal history of nicotine dependence; Z79.82 Long term (current) use of aspirin; E66.9 Obesity, unspecified; Z68.37 Body mass index [BMI] 37.0-37.9, adult; K75.81 Nonalcoholic steatohepatitis (NASH); E11.9 Type 2 diabetes mellitus without complications; Z79.84 Long term (current) use of oral hypoglycemic drugs
CPT/HCPCS: 45378; 82948; J2704; J7120

== ENCOUNTER 2022-10-05 09:54 | Outpatient (CLI) | payer OTHER, SELFPAY ==
[2022-10-05 19:12] LABS: Hemoglobin A1C 7.1 % (<5.7)
== END 2022-10-05 09:55 | disposition home or self-care (01) ==
PROVIDERS: PCP Family Medicine; Visit Provider Family Medicine
DX: E11.21 Type 2 diabetes mellitus with diabetic nephropathy (principal)
CPT/HCPCS: 36415; 83036

== ENCOUNTER 2022-11-03 09:00 | Outpatient (CLI) | payer OTHER, SELFPAY ==
--- NOTE | ~2022-11-03 | MM_ITS ---
EXAMINATION: MM screening [facility]ma BI w chiquita HISTORY: Screening mammogram TECHNIQUE: Craniocaudal and mediolateral oblique 3-D tomosynthesis images were obtained and synthetic 2-D images were generated. CAD analysis was submitted and interpreted. COMPARISON: 10/22/2021 bilateral screening mammogram 07/16/2020 diagnostic right mammogram and complete right breast ultrasound bilateral screening BREAST PARENCHYMAL COMPOSITION: There are scattered areas of fibroglandular density. FINDINGS: Occasional benign calcifications. There is no evidence of suspicious mass, calcification, o r architectural distortion to suggest malignancy in either breast. There has been no suspicious inter radha change. IMPRESSION: 1. No mammographic evidence of malignancy. 2. Recommend routine screening mammography in one year. BI-RADS Category 2: Benign finding(s). Reviewed, dictated and finalized at location A.
== END 2022-11-03 09:01 | disposition home or self-care (01) ==
PROVIDERS: PCP Family Medicine; Visit Provider Obstetrics & Gynecology
DX: Z12.31 Encounter for screening mammogram for malignant neoplasm of breast (principal)
CPT/HCPCS: 77063; 77067

== ENCOUNTER 2022-11-21 09:55 | Outpatient (CLI) | payer OTHER, SELFPAY ==
[2022-11-21 11:25] LABS: Basophils Percent Auto 0.6 % (0.2-1.2); Eosinophils Absolute Auto 0.1 K/mm3 (0-0.3); Hematocrit 45.2 % (37.0-47.0); Hemoglobin 14.1 g/dL (12.0-15.0); Immature Granulocyte Absolute 0.02 K/mm3 (0.00-0.031); Immature Granulocyte Percent A 0.3 % (0-0.5); Lymphocytes Absolute Auto 2.17 K/mm3 (0.9-3.2); Lymphocytes Percent Auto 31.6 % (18.3-44.2); Mean Corpuscular HGB Conc 31.2 g/dl (32-36); Mean Corpuscular Hemoglobin 29.7 pg (26-34); Mean Corpuscular Volume 95.2 fl (80-100); Monocytes Absolute Auto 0.8 K/mm3 (0.1-0.6); Monocytes Percent Auto 11.4 % (2.6-8.5); Neutrophils Absolute Auto 3.7 K/mm3 (1.3-6.7); Neutrophils Percent Auto 54.1 % (45.5-73.1); Platelet Count Result 276 k/mm3 (150-375); Red Blood Count 4.75 M/mm3 (4.2-5.4); Red Cell Distribution Width 13.5 % (11.5-14.5); White Blood Count 6.9 K/mm3 (4.5-10.0)
[2022-11-21 11:39] LABS: Alanine Aminotransferase 49 U/L (6-35); Albumin Level 4.1 g/dL (3.5-5.1); Alkaline Phosphatase 87 U/L (38-126); Anion Gap 6 mmol/L (8-16); Aspartate Amino Transferase 43 U/L (14-36); Bilirubin,Total 0.5 mg/dL (0.2-1.3); Blood Urea Nitrogen 13 mg/dL (7-17); Calcium 8.9 mg/dL (8.4-10.2); Carbon Dioxide 27 mmol/L (22-30); Chloride 103 mmol/L (98-107); Cholesterol 194 mg/dL (0-200); Estimated Glomerular Filt Rate > 60; Glucose 140 mg/dL (65-110); HDL Direct 49 mg/dL; Potassium 4.3 mmol/L (3.4-5.0); Sodium 136 mmol/L (137-145); Triglycerides 154 mg/dL (<150)
[2022-11-21 11:51] LABS: LDL Cholesterol Direct 113 mg/dL
[2022-11-21 12:08] LABS: Thyroid Stimulating Hormone 0.266 uIU/mL (0.465-4.680)
== END 2022-11-21 09:56 | disposition home or self-care (01) ==
PROVIDERS: PCP Family Medicine; Referring Provider Internal Medicine Cardiovascular Disease; Visit Provider Family Medicine
DX: E11.9 Type 2 diabetes mellitus without complications (principal); E78.5 Hyperlipidemia, unspecified; Z13.29 Encounter for screening for other suspected endocrine disorder
CPT/HCPCS: 36415; 80053; 80061; 84443; 85025

== ENCOUNTER 2023-03-17 13:03 | Outpatient (CLI) | payer OTHER, SELFPAY ==
[2023-03-17 19:55] LABS: Thyroid Stimulating Hormone 0.947 uIU/mL (0.465-4.680)
== END 2023-03-17 13:04 | disposition home or self-care (01) ==
LOC: ANHGOSHLAB 13:04
PROVIDERS: PCP Family Medicine; Visit Provider Family Medicine
DX: E03.8 Other specified hypothyroidism (principal); E06.3 Autoimmune thyroiditis
CPT/HCPCS: 36415; 84443

== ENCOUNTER 2023-05-22 08:58 | Outpatient (CLI) | payer OTHER, SELFPAY ==
[2023-05-22 09:42] LABS: Alanine Aminotransferase 20 U/L (6-35); Albumin Level 4.1 g/dL (3.5-5.1); Alkaline Phosphatase 87 U/L (38-126); Anion Gap 5 mmol/L (8-16); Aspartate Amino Transferase 24 U/L (14-36); Bilirubin,Total 0.5 mg/dL (0.2-1.3); Blood Urea Nitrogen 17 mg/dL (7-17); Carbon Dioxide 27 mmol/L (22-30); Chloride 104 mmol/L (98-107); Estimated Glomerular Filt Rate > 60; Glucose 136 mg/dL (65-110); Potassium 4.2 mmol/L (3.4-5.0); Sodium 136 mmol/L (137-145)
[2023-05-22 22:37] LABS: Hemoglobin A1C 7.2 % (<5.7)
== END 2023-05-22 08:59 | disposition home or self-care (01) ==
LOC: ANHLAB 09:00
PROVIDERS: PCP Family Medicine; Visit Provider Nurse Practitioner Family
DX: E11.21 Type 2 diabetes mellitus with diabetic nephropathy (principal); I10 Essential (primary) hypertension
CPT/HCPCS: 36415; 80053; 83036

== ENCOUNTER 2023-11-30 09:31 | Outpatient (CLI) | payer OTHER, SELFPAY ==
--- NOTE | ~2023-11-30 | MM_ITS ---
EXAMINATION: MM screening delma BI w chiquita HISTORY: Screening TECHNIQUE: Craniocaudal and mediolateral oblique 3-D tomosynthesis images were obtained and synthetic 2-D images were generated. CAD analysis was submitted and interpreted. COMPARISON: Comparison to multiple prior studies sequentially, with oldest reviewed study dated 10/11. BREAST PARENCHYMAL COMPOSITION: Dense: The breasts are heterogeneously dense, which may obscure small masses FINDINGS: There is developing asymmetry with possible architectural distortion in the anterior centra l aspect of the right breast. The left breast is stable without evidence for malignancy. IMPRESSION: 1. Developing asymmetries with possible architectural distortion in the subareolar location of the ri ght breast. 2. Additional mammographic views and possible breast ultrasound are recommended. BI-RADS Category 0: Incomplete: Needs additional imaging evaluation. Reviewed, dictated and finalized at location B. IMPRESSION: 1. Developing asymmetries with possible architectural distortion in the subareo lar location of the right breast. 2. Additional mammographic views and possible breast ultrasound are recommended . BI-RADS Category 0: Incomplete: Needs additional imaging evaluation.
== END 2023-11-30 09:32 | disposition home or self-care (01) ==
PROVIDERS: PCP Nurse Practitioner Family; Visit Provider Obstetrics & Gynecology
DX: Z12.31 Encounter for screening mammogram for malignant neoplasm of breast (principal); R92.8 Other abnormal and inconclusive findings on diagnostic imaging of breast
CPT/HCPCS: 77063; 77067

== ENCOUNTER 2023-12-05 08:35 | Outpatient (CLI) | payer OTHER, SELFPAY ==
--- NOTE | 2023-12-05 08:46 | ECG_ITS ---
Test Date: 2023-12-05 08:51:35 Measurements Intervals [place] Rate: 85 P: 50 RI: 161 QRS: 18 QRSD: 98 T: 5 QT: 382 QTc: 456 Interpretive Statements SINUS RHYTHM LOW QRS VOLTAGE IN PRECORDIAL LEADS [QRS DEFLECTION < 1.0 mV IN CHEST LEADS] BORDERLINE ECG No previous ECG available for comparison Electronically Signed On 12-06-2023 06:57:47 CDT by Daniel Borges M.D.
[2023-12-05 09:04] LABS: Basophils Absolute Auto 0.1 K/mm3 (0.0-0.1); Basophils Percent Auto 0.7 % (0.2-1.2); Eosinophils Absolute Auto 0.1 K/mm3 (0-0.3); Eosinophils Percent Auto 1.9 % (0-4.4); Hematocrit 44.6 % (37.0-47.0); Hemoglobin 14.5 g/dL (12.0-15.0); Immature Granulocyte Absolute 0.02 K/mm3 (0.00-0.031); Immature Granulocyte Percent A 0.3 % (0-0.5); Lymphocytes Absolute Auto 2.05 K/mm3 (0.9-3.2); Mean Corpuscular HGB Conc 32.5 g/dl (32-36); Mean Corpuscular Hemoglobin 30.6 pg (26-34); Mean Corpuscular Volume 94.1 fl (80-100); Monocytes Absolute Auto 0.8 K/mm3 (0.1-0.6); Monocytes Percent Auto 11.7 % (2.6-8.5); Neutrophils Absolute Auto 3.8 K/mm3 (1.3-6.7); Neutrophils Percent Auto 55.4 % (45.5-73.1); Platelet Count Result 276 k/mm3 (150-375); Red Blood Count 4.74 M/mm3 (4.2-5.4); White Blood Count 6.8 K/mm3 (4.5-10.0)
[2023-12-05 09:13] LABS: Anion Gap 9 mmol/L (4-12); Blood Urea Nitrogen 12 mg/dL (7-17); Carbon Dioxide 22 mmol/L (22-30); Chloride 105 mmol/L (98-107); Estimated Glomerular Filt Rate > 60; Glucose 137 mg/dL (65-110); Potassium 4.1 mmol/L (3.4-5.0); Sodium 136 mmol/L (137-145)
== END 2023-12-05 08:36 | disposition home or self-care (01) ==
LOC: ANHSURGERY 08:41
PROVIDERS: Anesthesiology; PCP Nurse Practitioner Family; Visit Provider Obstetrics & Gynecology
DX: D25.9 Leiomyoma of uterus, unspecified (principal); E11.9 Type 2 diabetes mellitus without complications; R94.31 Abnormal electrocardiogram [ECG] [EKG]
CPT/HCPCS: 36415; 80048; 85025; 86850; 86900; 86901; 93005

== ENCOUNTER 2023-12-08 03:41 | Day surgery (SDC) | payer OTHER, SELFPAY ==
[2023-11-30 13:07] VITALS: BMI 35.7
--- NOTE | 2023-11-30 13:13 | PC.NURSE ---
Report to the Outpatient Waiting Room, entrance under the green pavilion located off [facility], at time _0930_ on date _[id number]_. Planned Procedure Time: _1130_.? Time changes happen often and if your time is changed the preop area will call you the afternoon before. - You and your visitor will be asked to self-screen and do not enter if you have any COVID symptoms. Please call surgeon if you need to reschedule. - A mask is optional within the hospital at this time. Patients may have clear liquids (water, carbonated beverages, clear teas, apple juice) until 3 hours prior to surgery with a maximum of 20 ounces. - No food from midnight until time of surgery and no smoking Take only the following medications with a SIP of water on the morning of surgery: __Metoprolol and Levothyroxine DO NOT STOP ANY OF YOUR OTHER PRESCRIPTION MEDICATIONS PRIOR TO SURGERY EXCEPT THE FOLLOWING Medications to discontinue per physician ___Vitamins and Shellman 3 Date to take last [id number] Ldscsfn has already stopped Ozempic per office instructions and is calling the office to inquire about aspirin. Please no make-up, nail danish, hairspray, perfume, deodorant, or body powder the day of surgery.? No jewelry (including any body piercings) or valuables the day of surgery, leave them at home.? Please take a shower or bath the night before, or the morning of, surgery with an antibacterial soap.? Wear comfortable, loose fitting clothing.? . - Jewelry must be removed prior to entering the operating room.? Rings and piercings that are not removed may be cut off. - The hospital will not accept responsibility for valuables.? - Please leave all valuables, including medications, at home the day of surgery. If you are going home after surgery, a licensed local company tanker driver must drive you home.? - NO public transportation without another adult if you receive anesthesia. - We recommend that an adult stay with you for 24 hours following discharge. - We also recommend that you do not drive, make important decision, drink alcoholic beverages, or take any drugs that were not prescribed by your health care provider for at least 24 hours after your discharge time. Follow any additional instructions given to you from your surgeon. Telephone instructions given to _Radha___and asked if any additional questions and then verbalized understanding. Patient advised to call surgeon office or pre surgery nurse liaison [phone] if any additional questions.
--- NOTE | 2023-12-07 08:22 | P.HP_ITS ---
H&P: HPI History of Present Illness Date/Time: 12/07/23 08:22 Chief Complaint: pelvic pain/uterine fibroids/ abnormal Pap smear/irregular bleeding Narrative: 53-year-old female admitted for robotic total vaginal hysterectomy bilateral salpingo-oophorectomy secondary to uterine fibroids pelvic pain and recurrent abnormal Paps. Risks and benefits reviewed including but not exclusive of , aspiration pneumonia, bleeding, transfusion, perforation injury to bowel, bladder, ureters, or other internal organs with need for open laparotomy. She had been taking Ozempic and will be off for at least a week prior to this procedure. She received the ACOG handout entitled hysterectomy as well as the deVinci handout. She had all questions answered. She asked to proceed. 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 Macular degeneration Nonalcoholic steatohepatitis ([place]) Obesity PSVT (paroxysmal supraventricular tachycardia) SVT (supraventricular tachycardia) Type 2 diabetes mellitus without complications Surgical History Surgical History Cholecystitis H/O dilation and curettage Kidney stones Family History Family History Mother Hypertension Family history of rheumatoid arthritis Father Family history of colitis Family history of diabetes mellitus in first degree relative Family history of ulcerative colitis Family history of type 2 diabetes mellitus Grandparent Hypertension Family history of malignant neoplasm Family history of malignant melanoma Family history of malignant neoplasm of breast in first degree relative Family history of malignant neoplasm of ovary Social History Social History Smoking packs per day: 1 Smoking cigarettes per day: 20.0 Years smoked: 10 Smoking pack-years: 10.00 Smoking status: Former smoker Tobacco type: cigarettes Second hand tobacco smoke exposure: No Smoking end date: 11/29/04 Alcohol intake: current Drinks per week: 2 Alcohol use details: rarely Substance use: never Substance use type: does not use Do You Feel Safe in your Home?: Yes Lack of Transportation: No Lack of Food: Never True Current Housing: I Have Housing Concerned About Future Housing: No Difficulty Paying Gas/Electric Bills: No Difficulty Paying for Meds: No Currently Unemployed: No Education: High School Diploma/GED Difficulty w/ Childcare or Family Care: No Living arrangements: with family Occupation/Education: occupation Gender identity (if verbalized by the patient): Female Sexual Orientation (if Verbalized by the Patient): Straight or Heterosexual Spiritual care concerns: No Agree to blood products: Yes Meds Home Medications and Allergies Home Medications Medication Instructions Recorded Confirmed Type aspirin 81 mg tablet,delayed 81 mg PO DAILY 09/12/19 11/30/23 History release (Adult Low Dose Aspirin) vitamins A,C,I-fiyk-eiwktx 2,148 2 tablet PO BID 09/12/19 11/30/23 History mcg-113 mg-45 mg-17.4 mg tablet (PreserVision AREDS) ethynodiol diacetate-ethinyl 1 tablet PO DAILY 11/14/19 11/30/23 History estradiol 1 mg-35 mcg tablet (Kelnor) omega-3 fatty acids 1,000 mg 1,000 mg PO BID 11/14/19 11/30/23 History capsule (Fish Oil Concentrate) cholecalciferol (vitamin D3) 25 25 mcg PO DAILY 09/07/22 11/30/23 History mcg (1,000 unit) capsule (Vitamin D3) guar gum 1 tbsp PO DAILY 09/07/22 11/30/23 History metoprolol succinate 100 mg See Rx Instructions .Route 08/02/23 11/30/23 Rx tablet,extended release 24 hr .COMPLEX #90 tabs pravastatin 10 mg tablet See Rx Instructions .Route 08/02/23 11/30/23 Rx .COMPLEX #90 tabs empagliflozin 25 mg tablet See Rx Instructions .Route 08/17/23 11/30/23 Rx (Jardiance) .COMPLEX #90 tabs semaglutide 2 mg/dose (8 mg/3 mL) See Rx Instructions .Route 08/28/23 11/30/23 Rx subcutaneous pen injector (Ozempic) .COMPLEX #3 mL cyclobenzaprine 5 mg tablet 5 mg PO TID PRN muscle spasm #20 09/07/23 11/30/23 Rx tabs amlodipine 2.5 mg tablet See Rx Instructions .Route 11/30/23 11/30/23 Rx .COMPLEX #90 tabs levothyroxine 175 mcg tablet See Rx Instructions .Route 11/30/23 11/30/23 Rx .COMPLEX #90 tabs sitagliptin phos 100 mg-metformin See Rx Instructions .Route 11/30/23 11/30/23 Rx ER 1,000 mg tablet,extend rel 24h .COMPLEX #90 tabs mp (Janumet XR) blood sugar diagnostic (OneTouch #100 strips 12/04/23 Rx Verio test strips) lancets 33 gauge (OneTouch Delica #100 ea 12/04/23 Rx Plus Lancet) Allergies Allergy/AdvReac Type Severity Reaction Status Date / Time KAREN Inhibitors Allergy Unknown angioedema Verified 11/30/23 13:04 Exam Const: General: cooperative, healthy appearing and comfortable Orientatio n/consciousness: oriented to person, oriented to place and oriented to time HENMT: Head: normal to inspection Resp: Effort & Inspection: normal respiratory effort Cardio: Rate: regular rate Rhythm: regular rhythm Heart sounds: S1 normal heart sound present and S2 normal heart sound present GI: Inspection: normal to inspection : External Female Exam: normal external appearance Speculum Exam - Vagina: normal appearance of the vagina Speculum Exam - Cervix: normal appearance of the cervix and Cervical os closed Bimanual exam- vagina & uterus: enlarged and Uterine tenderness Bimanual Exam- Adnexa, other: normal adnexae Assessment and Plan Assessment and plan (1) Uterine fibroid: Code(s): D25.9 - Leiomyoma of uterus, unspecified Status: Acute (2) Abnormal Pap smear of cervix: Code(s): R87.619 - Unspecified abnormal cytological findings in specimens from cervix uteri Status: Acute (3) Pelvic pain: Code(s): R10.2 - Pelvic and perineal pain Status: Acute (4) Excessive bleeding: Code(s): R58 - Hemorrhage, not elsewhere classified Status: Acute Assessment and Plan: proceed with robotic total vaginal hysterectomy and bilateral salpingo- oophorectomy
[2023-12-08] VITALS (11 sets, daily range): BP systolic 112–152; BP diastolic 63–80; PULSE 81–100; RESP 12–20; TEMP 36.3–37.3; O2SAT 95–100; BMI 36.1
--- NOTE | 2023-12-08 06:50 | WPDHPUPDATE1 ---
History and Physical Update Update Date/Time: 12/08/23 06:50 History and Physical has been reviewed, including an updated exam of the patient. There are NO changes in the patient's condition. Risks, benefits, and alternatives have been discussed and questions answered. Patient agrees to proceed with procedure.
[2023-12-08 08:29] LABS: Glucose Point of Care 146 mg/dl (65-105)
--- NOTE | 2023-12-08 08:33 | WPDANESEPPF ---
Anes - Initial Pre Proc Eval Procedure: Operation Date: 12/08/23 09:30 Proposed Procedures p Robotic Assisted Total Vaginal Hysterectomy with Bilateral Salpingo-Oophorectomy - Franki Lombardo MD Date/Time: 12/08/23 08:33 Surgeon: Franki Lombardo MD Pre Op Diagnosis: pelvic pain, fibroids, irregular bleeding Patient Data Age: 53 Gender: F Height: 1.7 m Weight: 103.6 kg Allergies Allergy/AdvReac Type Severity Reaction Status Date / Time KAREN Inhibitors Allergy Unknown angioedema Verified 11/30/23 13:04 Home Medications Medication Instructions Recorded Confirmed Type aspirin 81 mg tablet,delayed 81 mg PO DAILY 09/12/19 11/30/23 History release (Adult Low Dose Aspirin) vitamins A,C,L-ffzd-dnvhlk 2,148 2 tablet PO BID 09/12/19 11/30/23 History mcg-113 mg-45 mg-17.4 mg tablet (PreserVision AREDS) ethynodiol diacetate-ethinyl 1 tablet PO DAILY 11/14/19 11/30/23 History estradiol 1 mg-35 mcg tablet (Kelnor) omega-3 fatty acids 1,000 mg 1,000 mg PO BID 11/14/19 11/30/23 History capsule (Fish Oil Concentrate) cholecalciferol (vitamin D3) 25 25 mcg PO DAILY 09/07/22 11/30/23 History mcg (1,000 unit) capsule (Vitamin D3) guar gum 1 tbsp PO DAILY 09/07/22 11/30/23 History metoprolol succinate 100 mg See Rx Instructions .Route 08/02/23 11/30/23 Rx tablet,extended release 24 hr .COMPLEX #90 tabs pravastatin 10 mg tablet See Rx Instructions .Route 08/02/23 11/30/23 Rx .COMPLEX #90 tabs empagliflozin 25 mg tablet See Rx Instructions .Route 08/17/23 11/30/23 Rx (Jardiance) .COMPLEX #90 tabs semaglutide 2 mg/dose (8 mg/3 mL) See Rx Instructions .Route 08/28/23 11/30/23 Rx subcutaneous pen injector (Ozempic) .COMPLEX #3 mL cyclobenzaprine 5 mg tablet 5 mg PO TID PRN muscle spasm #20 09/07/23 11/30/23 Rx tabs amlodipine 2.5 mg tablet See Rx Instructions .Route 11/30/23 11/30/23 Rx .COMPLEX #90 tabs levothyroxine 175 mcg tablet See Rx Instructions .Route 11/30/23 11/30/23 Rx .COMPLEX #90 tabs sitagliptin phos 100 mg-metformin See Rx Instructions .Route 11/30/23 11/30/23 Rx ER 1,000 mg tablet,extend rel 24h .COMPLEX #90 tabs mp (Janumet XR) blood sugar diagnostic (OneTouch #100 strips 12/04/23 Rx Verio test strips) lancets 33 gauge (OneTouch Delica #100 ea 12/04/23 Rx Plus Lancet) hydrocodone 5 mg-acetaminophen 325 1 tablet PO Q4H PRN pain #20 tabs 12/08/23 Rx mg tablet Laboratory Tests 12/08/23 08:27 POC Capillary Glucose 146 H mg/dl (65-105) Patient hx anesthesia problems: post op nausea/vomiting Family hx anesthesia problems: none Results Review: All pre-operative results and documents have been reviewed as part of the pre-operative evaluation. 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 Macular degeneration Nonalcoholic steatohepatitis ([place]) Obesity PSVT (paroxysmal supraventricular tachycardia) SVT (supraventricular tachycardia) Type 2 diabetes mellitus without complications Surgical History Surgical History Cholecystitis H/O dilation and curettage Kidney stones Family History Family History Mother Hypertension Family history of rheumatoid arthritis Father Family history of colitis Family history of diabetes mellitus in first degree relative Family history of ulcerative colitis Family history of type 2 diabetes mellitus Grandparent Hypertension Family history of malignant neoplasm Family history of malignant melanoma Family history of malignant neoplasm of breast in first degree relative Family history of malignant neoplasm of ovary Social History Social History Smoking packs per day: 1 Smoking cigarettes per day: 20.0 Years smoked: 10 Smoking pack-years: 10.00 Smoking status: Former smoker Tobacco type: cigarettes Second hand tobacco smoke exposure: No Smoking end date: 11/29/04 Alcohol intake: current Drinks per week: 2 Alcohol use details: rarely Substance use: never Substance use type: does not use Do You Feel Safe in your Home?: Yes Lack of Transportation: No Lack of Food: Never True Current Housing: I Have Housing Concerned About Future Housing: No Difficulty Paying Gas/Electric Bills: No Difficulty Paying for Meds: No Currently Unemployed: No Education: High School Diploma/GED Difficulty w/ Childcare or Family Care: No Living arrangements: with family Occupation/Education: occupation Gender identity (if verbalized by the patient): Female Sexual Orientation (if Verbalized by the Patient): Straight or Heterosexual Spiritual care concerns: No Agree to blood products: Yes Anes - Eval Final PreProcedure Day of Procedure 12/08/23 08:33 Patient weight: obese Airway: Mallampati scale class III ASA classification: III Anesthesia type and monitoring: general ETT (anterior; have glidescope in the room) and standard monitoring Results Review: All pre-operative results and documents have been reviewed as part of the pre-operative evaluation. Informed Consent: The patient's anesthetic plan and its attendant risks and benefits were discussed with the patient/family/POA. Questions were solicited and answers provided to the satisfaction of the patient/family/POA.
[2023-12-08] MEDS: LACTATED RINGERS 1,000 ML 30 ML IV CONT ×2 (08:42→10:47)
[2023-12-08] MEDS: SCOPOLAMINE 1 MG PATCH 1 PATCH TRANSDERM (08:42)
[2023-12-08] MEDS: ACETAMINOPHEN 500 MG TABLET 1000 MG PO ×3 (08:42→22:40)
[2023-12-08] MEDS: KETOROLAC 15 MG/ML VIAL (*BKC) IV PUSH (08:42)
[2023-12-08 08:43] LABS: BEDSIDEPREGUCG Negative (Negative)
[2023-12-08] MEDS: ceFAZolin 2 GM/D5W 50 ML 2 GM/50 ML BAG IVPB (09:05)
--- NOTE | 2023-12-08 10:26 | P.OP_ITS ---
Procedure Note - Detailed Date of Procedure 12/08/23 Pre-op Diagnosis pelvic pain, fibroids, irregular bleeding Post-op Diagnosis Same Procedure Performed Robotic total vaginal hysterectomy and bilateral salpingo-oophorectomy Surgeon Franki Lombardo MD Anesthesia General Indications 53-year-old female with symptomatic uterine fibroids Findings large fibroid uterus. Normal-appearing ovaries and tubes. Description of Procedure Patient was prepped draped in the sterile fashion placed in dorsal lithotomy position. Under excellent general endotracheal anesthesia weighted speculum placed in posterior fornix vagina. Anterior lip of the cervix grasped with a single-tooth tenaculum. Uterus sounded to 10cm. Serial dilatation with fragmented dilators performed followed by passage of the 10. SUDARSHAN and the 3. Cold cup. Next the 16 Occitan catheter was placed in the bladder. The weighted speculum and the single-tooth removed and the gloves were changed. A supraumbilical incision made the Veress needle passed in the abdomen. Abdomen filled with CO2 gas [id number]. The 8mm trocar advanced in the abdomen. Downside visualized no injury seen. Patient placed in Trendelenburg and right left lateral quadrant incisions made. 8Mm trocars advanced under direct visualization assuring no injury. A 10mm trocar advanced in the right upper quadrant. The robot was docked. Attention was turned to the correctional counselor/case manager. The left round ligament was grasped, burned, cut. A anteriorly bladder flap was formed to the opposite round ligament was clamped, burned, cut. Next infundibulopelvic structure on the left was skeletonized clamping burning cutting and bringing this to the previously cut round ligament. In similar fashion right tube 8 infundibulopelvic structure was skeletonized clamping burning cutting and bringing this to the previously cut round ligament. The cardinal broad ligaments on left were then serially skeletonized clamping burning cutting this down the lateral edge of the uterus and to the vessels could seen these were individually clamped, burned, cut. In similar fashion on the right the cardinal broad ligaments were serially skeletonized clamping burning cutting and bringing this down the lateral edge of the uterus until the vessels could be seen. These were individually clamped, burned, cut. The colpotomy incision was then made after blanching was noted uterus cervix tubes and ovaries removed through the vagina. The vagina was closed with continuous running 0V lock from lateral edge to lateral edge back to the midline. Irrigation undertaken until clear and hemostasis was assured. The instruments were withdrawn. The robot was undocked the gas removed from the abdomen the trocars removed the incisions closed with 4 Monocryl and glue. The patient went recovery in satisfactory condition. All sponge, needle, instrument counts were correct. There were no immediate complications Estimated Blood Loss 25 Drains No Packing No Pathology Yes Complications No immediate complications Condition Stable Disposition PACU
--- NOTE | 2023-12-08 10:30 | PM.DS ---
DS: Admitting Diagnosis Discharge Date 12/09/2023 Admitting Diagnosis symptomatic uterine fibroids DS: Discharge Diagnosis Discharge Diagnosis (1) Excessive bleeding: Code(s): R58 - Hemorrhage, not elsewhere classified Status: Acute (2) Pelvic pain: Code(s): R10.2 - Pelvic and perineal pain Status: Acute (3) Abnormal Pap smear of cervix: Code(s): R87.619 - Unspecified abnormal cytological findings in specimens from cervix uteri Status: Acute (4) Uterine fibroid: Code(s): D25.9 - Leiomyoma of uterus, unspecified Status: Acute DS: Summary Hospital Course Reason for hospitalization: patient underwent robotic total vaginal hysterectomy bilateral salpingectomy on 12/07 Hospital Course: patient's hospital course. She afebrile. She was up, voiding without difficulty eating regular diet, ambulating and generally without complaints. Time Spent with Patient Time attestation: Total time spent providing and/or coordinating discharge services: Exam Const: General: cooperative, healthy appearing and comfortable Orientation/consciousness: oriented to person, oriented to place and oriented to time Resp: Effort & Inspection: normal respiratory effort Cardio: Rate: regular rate Rhythm: regular rhythm Heart sounds: S1 normal heart sound present and S2 normal heart sound present GI: Inspection: normal to inspection and incision ( Wounds are clean dry and intact) DS: Data Data Completed and Pending Pending studies at discharge: Pending at discharge 12/08/23 10:14 Surgical [PTH] Routine Labs on day of discharge: Labs from last 24 hours 12/08/23 12/08/23 08:32 08:27 POC Capillary Glucose 146 H POC Urine HCG, Qual Negative Discharge Plan Discharge Patient Disposition: Home, Self-Care Stand Alone Forms: General Discharge Instructions Follow-up/Referrals: Franki Ontiveros MD [Physician] - Discharge Medications: New hydrocodone-acetaminophen 5-325 mg tablet 1 tablet PO Q4H PRN (Reason: pain) Qty: 20 0RF No Action PreserVision AREDS [id number] tablet 2 tablet PO BID Rx Instructions: administer with AM and PM meals aspirin [Adult Low Dose Aspirin] 81 mg tablet,delayed release (DR/EC) 81 mg PO DAILY omega-3 fatty acids [Fish Oil Concentrate] 1,000 mg capsule 1,000 mg PO BID ethynodiol diac-eth estradiol [Kelnor (28)] 1-35 mg-mcg tablet 1 tablet PO DAILY cyclobenzaprine 5 mg tablet 5 mg PO TID PRN (Reason: muscle spasm) Qty: 20 0RF Benefiber (guar gum) Packet 1 tbsp PO DAILY Rx Instructions: mix into at least 4 oz water or juice before administering cholecalciferol (vitamin D3) [Vitamin D3] 25 mcg (1,000 unit) Capsule 25 mcg PO DAILY metoprolol succinate 100 mg tablet extended release 24 hr See Rx Instructions .ROUTE .COMPLEX Qty: 90 2RF Dose Instruction: TAKE 1 TABLET(100 MG) BY MOUTH DAILY Rx Instructions: TAKE 1 TABLET(100 MG) BY MOUTH DAILY pravastatin 10 mg tablet See Rx Instructions .ROUTE .COMPLEX Qty: 90 2RF Dose Instruction: TAKE 1 TABLET BY MOUTH DAILY Rx Instructions: TAKE 1 TABLET BY MOUTH DAILY Jardiance 25 mg tablet See Rx Instructions .ROUTE .COMPLEX Qty: 90 1RF Dose Instruction: TAKE 1 TABLET BY MOUTH DAILY Rx Instructions: TAKE 1 TABLET BY MOUTH DAILY Ozempic 2 mg/dose (8 mg/3 mL) pen injector See Rx Instructions .ROUTE .COMPLEX Qty: 3 1RF Dose Instruction: INJECT 2 MG UNDER THE SKIN ONE DAY A WEEK Rx Instructions: INJECT 2 MG UNDER THE SKIN ONE DAY A WEEK, Sundays Janumet XR 100-1,000 mg tablet, ER multiphase 24 hr See Rx Instructions .ROUTE .COMPLEX Qty: 90 1RF Dose Instruction: TAKE 1 TABLET BY MOUTH DAILY Rx Instructions: TAKE 1 TABLET BY MOUTH DAILY levothyroxine 175 mcg tablet See Rx Instructions .ROUTE .COMPLEX Qty: 90 1RF Dose Instruction: TAKE 1 TABLET BY MOUTH DAILY Rx Instructions: TAKE 1 TABLET BY MOUTH DAILY amlodipine 2.5 mg tablet See Rx Instructions .ROUTE .COMPLEX Qty: 90 1RF Dose Instruction: TAKE 1 TABLET BY MOUTH DAILY Rx Instructions: TAKE 1 TABLET BY MOUTH DAILY, Says takes in the evening. (DME) OneTouch Verio test strips Strip See Rx Instructions .ROUTE .COMPLEX Qty: 100 1RF Dose Instruction: USE ONCE DAILY Rx Instructions: USE ONCE DAILY (DME) lancets [OneTouch Delica Plus Lancet] 33 gauge misc See Rx Instructions .ROUTE .COMPLEX Qty: 100 1RF Dose Instruction: DIRECTED Rx Instructions: DIRECTED
[2023-12-08] MEDS: fentaNYL CITRATE INJ (*CRX) 100 MCG/2 ML VIAL 25 MCG IV PUSH ×2 (10:55→11:03)
[2023-12-08 11:49] LABS: Glucose Point of Care 146 mg/dl (65-105)
[2023-12-08] MEDS: SIMETHICONE 80 MG TAB.CHEW PO (16:04)
[2023-12-08] MEDS: DOCUSATE SODIUM 100 MG CAPSULE PO (16:04)
[2023-12-08] MEDS: KETOROLAC 30 MG/ML VIAL (*BKC) IV PUSH ×2 (16:04→22:40)
[2023-12-09 04:16] VITALS: BP 113/64; PULSE 75; RESP 20; TEMP 36.8; O2SAT 97
[2023-12-09] MEDS: KETOROLAC 30 MG/ML VIAL (*BKC) IV PUSH (04:16)
[2023-12-09] MEDS: ACETAMINOPHEN 500 MG TABLET 1000 MG PO (04:16)
[2023-12-09 05:44] LABS: Basophils Percent Auto 0.3 % (0.2-1.2); Eosinophils Percent Auto 0.2 % (0-4.4); Hematocrit 41.7 % (37.0-47.0); Hemoglobin 13.4 g/dL (12.0-15.0); Immature Granulocyte Absolute 0.04 K/mm3 (0.00-0.031); Immature Granulocyte Percent A 0.4 % (0-0.5); Lymphocytes Absolute Auto 2.46 K/mm3 (0.9-3.2); Lymphocytes Percent Auto 24.1 % (18.3-44.2); Mean Corpuscular HGB Conc 32.1 g/dl (32-36); Mean Corpuscular Hemoglobin 29.9 pg (26-34); Mean Corpuscular Volume 93.1 fl (80-100); Mean Platelet Volume 10.7 fl (7.4-10.4); Monocytes Absolute Auto 1.2 K/mm3 (0.1-0.6); Monocytes Percent Auto 11.3 % (2.6-8.5); Neutrophils Absolute Auto 6.5 K/mm3 (1.3-6.7); Neutrophils Percent Auto 63.7 % (45.5-73.1); Platelet Count Result 286 k/mm3 (150-375); Red Blood Count 4.48 M/mm3 (4.2-5.4); Red Cell Distribution Width 13.7 % (11.5-14.5); White Blood Count 10.2 K/mm3 (4.5-10.0)
--- NOTE | 2023-12-09 06:51 | P.PNAN_ITS ---
Anes - Prog Note Post-Op Date/Time: 12/09/23 06:51 Cardiovascular status: normal Respiratory status: normal Airway patency: baseline Mental status: baseline Post-Op hydration status: normal Vital Signs: Last Vital Signs Temp 36.8 C 12/09/23 04:16 Pulse 75 12/09/23 04:16 Resp 20 12/09/23 04:16 BP 113/64 12/09/23 04:16 Pulse Ox 97 12/09/23 04:16 O2 Del Method Room Air 12/09/23 04:16 O2 Flow Rate 2 12/08/23 11:48 Pain Score (VAS): 2 I/O: Intake & Output 12/08/23 12/08/23 12/09/23 15:59 23:59 07:59 Intake Total 850 500 Output Total 425 2000 Balance 425 -1500 Laboratory Tests 12/09/23 03:56 12/08/23 12/08/23 12/08/23 08:27 08:32 11:45 WBC RBC Hgb Hct MCV MCH MCHC RDW Plt Count MPV Immature Gran % (Auto) Neut % (Auto) Lymph % (Auto) [place] % (Auto) Eos % (Auto) Baso % (Auto) Lymph # (Auto) [place] # (Auto) Eos # (Auto) Baso # (Auto) Abs Immat Gran (auto) Absolute Neuts (auto) Absolute Nucleated RBC Nucleated RBC % POC Capillary Glucose 146 H 146 H POC Urine HCG, Qual Negative 12/09/23 03:56 WBC 10.2 H RBC 4.48 Hgb 13.4 Hct 41.7 MCV 93.1 MCH 29.9 MCHC 32.1 RDW 13.7 Plt Count 286 MPV 10.7 H Immature Gran % (Auto) 0.4 Neut % (Auto) 63.7 Lymph % (Auto) 24.1 [place] % (Auto) 11.3 H Eos % (Auto) 0.2 Baso % (Auto) 0.3 Lymph # (Auto) 2.46 [place] # (Auto) 1.2 H Eos # (Auto) 0.0 Baso # (Auto) 0.0 Abs Immat Gran (auto) 0.04 H Absolute Neuts (auto) 6.5 Absolute Nucleated RBC 0.000 Nucleated RBC % 0.0 POC Capillary Glucose POC Urine HCG, Qual Post-procedural complaints: none Patient Feedback: Patient satisfied with anesthetic care.
--- NOTE | 2023-12-09 07:57 | P.PNOB_ITS ---
BOTTOM STEEP TENDER - A/P Postoperative Procedures: Procedures Operation Date: 12/08/23 09:30 Actual Procedure Side Surgeon p Robotic Assisted Total Vaginal Hysterectomy with Bilateral Salpingo- Oophorectomy Bilateral Franki Lombardo MD Postoperative day: 1 Postoperative status: doing well Postoperative plan: routine post-op care, see orders, ambulate, advance diet, voiding trials and discharge Time Spent With Patient Time: Total time spent is greater than 50% in coordination of care (as documented) at patient's floor/unit and/or counseling patient: Time with patient: less than 15 minutes BOTTOM STEEP TENDER- PN:Subj Post-Op Subjective Date/time seen: 12/09/23 07:57 Subjective: patient reports feeling better, patient has no complaints, patient desires discharge, pain is well controlled and patient is tolerating oral intake Exam Const: General: cooperative, healthy appearing and comfortable Nutritional Appearance: average body habitus Orientation/consciousness: oriented to person, oriented to place and oriented to time HENMT: Head: normal to inspection Resp: Effort & Inspection: normal respiratory effort Cardio: Rate: regular rate Rhythm: regular rhythm Heart sounds: S1 normal heart sound present and S2 normal heart sound present GI: Inspection: normal to inspection and incision (cdi) BOTTOM STEEP TENDER - PN: Obj Data Vital Signs Vital Signs: Vital Signs - 24 hr 12/08/23 08:32 12/08/23 10:35 12/08/23 10:50 Temperature 98.6 F 97.3 F L Pulse Rate 89 85 86 Respiratory Rate 15 14 Blood Pressure 144/80 H 148/76 H 152/75 H Pulse Oximetry 100 100 99 Oxygen Delivery Room Air Simple Face Mask Simple Face Mask Oxygen Flow Rate 6 6 12/08/23 11:05 12/08/23 11:20 12/08/23 11:35 Temperature Pulse Rate 84 90 85 Respiratory Rate 12 14 12 Blood Pressure 146/77 H 138/76 144/75 H Pulse Oximetry 99 95 95 Oxygen Delivery Simple Face Mask Room Air Nasal Cannula Oxygen Flow Rate 6 2 12/08/23 11:48 12/08/23 11:55 12/08/23 16:05 Temperature 97.3 F L 97.5 F L Pulse Rate 87 88 81 Respiratory Rate 13 16 16 Blood Pressure 149/76 H 139/71 135/70 Pulse Oximetry 96 96 Oxygen Delivery Nasal Cannula Oxygen Flow Rate 2 12/08/23 19:15 12/08/23 22:45 12/08/23 22:45 Temperature 99.2 F 98.6 F Pulse Rate 100 91 Respiratory Rate 20 18 Blood Pressure 139/77 112/63 Pulse Oximetry 100 98 Oxygen Delivery Room Air Oxygen Flow Rate 12/09/23 04:16 12/09/23 04:16 Temperature 98.3 F Pulse Rate 75 Respiratory Rate 20 Blood Pressure 113/64 Pulse Oximetry 97 Oxygen Delivery Room Air Oxygen Flow Rate Intake/Output Intake/Output: Intake & Output 12/06/23 12/07/23 12/08/23 12/09/23 23:59 23:59 23:59 23:59 Intake Total 1350 Output Total 2425 Balance -1075 Meds/Results Medications: Active Medications Generic Name Dose Route Start Last Admin Trade Name Freq PRN Reason Stop Dose Admin Acetaminophen 1,000 mg 12/08/23 15:00 12/09/23 04:16 Acetaminophen 500 Mg Tablet PO 1,000 mg Q6H [facility] Administration Docusate Sodium 100 mg 12/08/23 17:00 12/08/23 16:04 Docusate Sodium 100 Mg Capsule PO 100 mg BID [facility] Administration Enoxaparin Sodium 40 mg 12/09/23 09:00 Enoxaparin 40 Mg/0.4 Ml Syringe SUB-Q DAILY [facility] Ibuprofen 600 mg 12/09/23 09:00 Ibuprofen 600 Mg Tablet PO Q6H [facility] Naloxone HCl 0.1 mg 12/08/23 12:25 Naloxone Hcl 0.4 Mg/Ml Vial IV PUSH Q2M PRN Respiratory rate less than 10 Ondansetron HCl 4 mg 12/08/23 12:25 Ondansetron Inj 4 Mg/2 Ml Vial IV PUSH Q6H PRN Nausea And Vomiting Oxycodone HCl 5 mg 12/08/23 12:25 Oxycodone Hcl (*Crx) 5 Mg Tab Ir PO Q4H PRN Pain Rated 4-6 Oxycodone HCl 10 mg 12/08/23 12:25 Oxycodone Hcl (*Crx) 5 Mg Tab Ir PO Q6H PRN Pain Rated 7-10 Simethicone 80 mg 12/08/23 12:25 12/08/23 16:09 Simethicone 80 Mg Tab.Chew PO Not Given TIDWM [facility] Labs 12/09/23 03:56 Labs: Laboratory Results - last 24 hr 12/08/23 12/08/23 12/08/23 08:27 08:32 11:45 WBC RBC Hgb Hct MCV MCH MCHC RDW Plt Count MPV Immature Gran % (Auto) Neut % (Auto) Lymph % (Auto) [place] % (Auto) Eos % (Auto) Baso % (Auto) Lymph # (Auto) [place] # (Auto) Eos # (Auto) Baso # (Auto) Abs Immat Gran (auto) Absolute Neuts (auto) Absolute Nucleated RBC Nucleated RBC % POC Capillary Glucose 146 H 146 H POC Urine HCG, Qual Negative 12/09/23 03:56 WBC 10.2 H RBC 4.48 Hgb 13.4 Hct 41.7 MCV 93.1 MCH 29.9 MCHC 32.1 RDW 13.7 Plt Count 286 MPV 10.7 H Immature Gran % (Auto) 0.4 Neut % (Auto) 63.7 Lymph % (Auto) 24.1 [place] % (Auto) 11.3 H Eos % (Auto) 0.2 Baso % (Auto) 0.3 Lymph # (Auto) 2.46 [place] # (Auto) 1.2 H Eos # (Auto) 0.0 Baso # (Auto) 0.0 Abs Immat Gran (auto) 0.04 H Absolute Neuts (auto) 6.5 Absolute Nucleated RBC 0.000 Nucleated RBC % 0.0 POC Capillary Glucose POC Urine HCG, Qual
[2023-12-09] MEDS: oxyCODONE HCL (*CRX) 5 MG TAB IR PO (08:17)
[2023-12-09] MEDS: DOCUSATE SODIUM 100 MG CAPSULE PO (08:18)
[2023-12-09] MEDS: SIMETHICONE 80 MG TAB.CHEW PO (08:18)
[2023-12-09] MEDS: ENOXAPARIN 40 MG/0.4 ML SYRINGE SUB-Q (08:19)
== END 2023-12-09 09:55 | disposition home or self-care (01) ==
LOC: ANHSURGERY 07:35 → ANHOB2 12:26
PROVIDERS: PCP Nurse Practitioner Family; Visit Provider Obstetrics & Gynecology
PROC: (CPT 58552; principal; 2023-12-08 09:30)
DX: D25.1 Intramural leiomyoma of uterus (principal); D25.2 Subserosal leiomyoma of uterus; N84.0 Polyp of corpus uteri; N80.03 Adenomyosis of the uterus; N88.8 Other specified noninflammatory disorders of cervix uteri; I10 Essential (primary) hypertension; E78.5 Hyperlipidemia, unspecified; G47.10 Hypersomnia, unspecified; H35.30 Unspecified macular degeneration; K75.81 Nonalcoholic steatohepatitis (NASH); I47.19 Other supraventricular tachycardia; E11.9 Type 2 diabetes mellitus without complications; E66.9 Obesity, unspecified; Z68.36 Body mass index [BMI] 36.0-36.9, adult; Z79.82 Long term (current) use of aspirin; Z79.891 Long term (current) use of opiate analgesic; Z79.84 Long term (current) use of oral hypoglycemic drugs; Z79.85 Long-term (current) use of injectable non-insulin antidiabetic drugs; Z98.890 Other specified postprocedural states; Z87.891 Personal history of nicotine dependence; Z87.442 Personal history of urinary calculi; Z80.8 Family history of malignant neoplasm of other organs or systems; Z80.3 Family history of malignant neoplasm of breast; Z80.41 Family history of malignant neoplasm of ovary
CPT/HCPCS: 58552; S2900; 36415; 82948; 85025; 88307; 99199; A9270; J0330; J0690; J1100; J1650; J1885; J2250; J2270; J2405; J2704; J3010; J7030; J7120

== ENCOUNTER 2023-12-26 10:24 | Outpatient (CLI) | payer OTHER, SELFPAY ==
--- NOTE | ~2023-12-26 | MM_ITS ---
EXAMINATION: MM diagnostic delma RT w chiquita HISTORY: Right breast asymmetry TECHNIQUE: Additional 3-D tomosynthesis images of the right breast were performed and synthetic 2-D i mages were generated. CAD analysis was submitted and interpreted. COMPARISON: 11/30/2023, 11/03/2022, 10/22/2021 BREAST PARENCHYMAL COMPOSITION:Dense: The breasts are heterogeneously dense, which may obscure small masses. FINDINGS: There is no persistent mass lesion or distortion with spot compression views. No suspicious medical calcification. IMPRESSION: No mammographic evidence for malignancy. BI-RADS Category 1: Negative Reviewed, dictated and finalized at location .
== END 2023-12-26 10:25 | disposition home or self-care (01) ==
LOC: ANHIMG 10:25
PROVIDERS: PCP Nurse Practitioner Family; Visit Provider Obstetrics & Gynecology
DX: R92.8 Other abnormal and inconclusive findings on diagnostic imaging of breast (principal)
CPT/HCPCS: 77061; 77065; G0279

== ENCOUNTER 2024-02-16 11:09 | Outpatient (CLI) | payer OTHER, SELFPAY ==
[2024-02-16 12:03] LABS: Hemoglobin A1C 6.3 % (<5.7)
[2024-02-16 12:11] LABS: Cholesterol 160 mg/dL (0-200); HDL Direct 54 mg/dL; Triglycerides 105 mg/dL (<150)
[2024-02-16 12:21] LABS: LDL Cholesterol Direct 73 mg/dL
[2024-02-16 12:43] LABS: Thyroid Stimulating Hormone 0.069 uIU/mL (0.465-4.680)
[2024-02-16 14:03] LABS: Microalbumin Urine Random 10.4 mg/L (0-16.7)
== END 2024-02-16 11:10 | disposition home or self-care (01) ==
LOC: ANHLAB 11:11
PROVIDERS: PCP Nurse Practitioner Family; Visit Provider Nurse Practitioner Family
DX: Z00.00 Encounter for general adult medical examination without abnormal findings (principal); E78.2 Mixed hyperlipidemia; E11.9 Type 2 diabetes mellitus without complications; E03.8 Other specified hypothyroidism; E06.3 Autoimmune thyroiditis; I47.19 Other supraventricular tachycardia
CPT/HCPCS: 36415; 80061; 82043; 83036; 84443

== ENCOUNTER 2024-04-24 13:26 | Outpatient (CLI) | payer OTHER, SELFPAY ==
--- OUTSIDE RECORDS SUMMARY | 2024-04-24 15:11 | XMS_ITS | Clinical Summary ---
Author Organization [facility] Address [address] [place] [address] Care Team Providers Care Pre Press Proofer Name Role Phone Kait Owens DO Primary Care Provider Allergies No known active allergies Medications ZOVIA 1/35E, 28, 1-35 mg-mcg Tablet TK 1 T PO QD 0 10/10/2017 Active levothyroxine 200 mcg tablet TK 1 T PO QD 1 10/07/2017 Active metoprolol tartrate (LOPRESSOR) 50 mg tablet Take 50 mg by mouth daily. Active losartan (COZAAR) 50 mg tablet Take 50 mg by mouth daily. Active sitaGLIPtin-metF ORMIN (JANUMET XR) 100-1,000 mg Extended Release 24 hour tablet Take by mouth daily. Active vit A/vit C/vit E/zinc/copper (ICAPS AREDS ORAL) Take by mouth 2 times daily. Active aspirin (ESTUARDO CHEWABLE) 81 mg Tablet, Chewable Take 81 mg by mouth daily. Active ONETOUCH VERIO Strip TEST BS ONCE D 0 05/03/2018 Active Active Problems Problem Noted Date Diagnosed Date Family history of malignant neoplasm of breast 0 06/22/2018 Family history of ovarian cancer 06/22/2018 Abnormal mammogram 10/17/2017 Abnormal ultrasound of breast 10/17/2017 Morbid obesity with body mass index of 40.0-49.9 10/17/2017 Social History Tobacco Use Types Packs/Day Years Used Date Smoking Tobacco: Former Cigarettes 2 10 0 07/29/1995 - 07/28/2005 Smokeless Tobacco: Never Alcohol Use Standard Drinks/Week Comments Yes 0 (1 standard drink = 0.6 oz pur e alcohol) rare Comments No Sex and Gender Information Value Date Recorded Sex Assigned at Not on file Legal Sex Female 3:27 PM CDT Gender Identity Not on file Sexual Orientation Not on file Last Filed Vital Signs Vital Sign Reading Time Taken Comments Blood Pressure 128/87 08/09/2018 10:04 AM CDT Pulse 79 08/09/2018 10:04 AM CDT Temperature 36.6 C (97.9 F) 08/09/2018 10:04 AM CDT Respiratory Rate - - Oxygen Saturation 97% 08/09/2018 10:04 AM CDT Inhaled Oxygen Concentration - - Weight 119 kg (262 lb 6.4 oz) 08/09/2018 10:04 A M CDT Height 170.2 cm (5' 7 ) 08/09/2018 10:04 AM CDT Body Mass Index 41.1 08/09/2018 10:04 AM CDT Plan of Treatment Health Maintenance Due Date Last Done Comments Pre-Diabetes and Diabetes Screening 1970 DTAP/TDAP/TD VACCINES (1 - Tdap) 01/12/1991 HEPATITIS B VACCINES (1 of 3 - 19+ 3-dose series) 01/12/1991 CERVICAL CANCER SCREENING 01/12/2002 BREAST CANCER SCREENING 2012 COLORECTAL SCREENING 01/12/2017 Colorectal Cancer Screening 01/12/2017 FIT-DNA Q 3 years 01/12/2017 FIT/FOBT Q 1 year 01/12/2017 Flex Sig/CT Colonography Q 5 years 01/12/2017 ZOSTER VACCINE (1 of 2) 01/12/2022 INFLUENZA VACCINE (#1) 2023 PNEUMOCOCCAL VACCINE 0-64 YEARS Aged Out No longer eligible based on patient's age to complete this topic Insurance [employer] PPO [id number] [id number] Care Teams Pre Press Proofer Relationship Specialty Start Date End Date Kait Owens DO [address] [place] [address] [phone] PCP - General Family Practice 10/17/17
== END 2024-04-24 13:27 | disposition home or self-care (01) ==
LOC: ANHGOSHLAB 13:28
PROVIDERS: PCP Nurse Practitioner Family; Visit Provider Nurse Practitioner Family
DX: E03.8 Other specified hypothyroidism (principal); E06.3 Autoimmune thyroiditis
CPT/HCPCS: 36415; 84443

== ENCOUNTER 2024-08-28 09:11 | Outpatient (CLI) | payer OTHER, SELFPAY ==
[2024-08-28 12:30] LABS: Hematocrit 46.5 % (37.0-47.0); Hemoglobin 14.3 g/dL (12.0-15.0); Mean Corpuscular Volume 95.1 fl (80-100); Red Blood Count 4.89 M/mm3 (4.2-5.4); White Blood Count 6.7 K/mm3 (4.5-10.0)
[2024-08-28 12:31] LABS: Immature Granulocyte Percent A 0.4 % (0-0.5); Lymphocytes Absolute Auto 2.31 K/mm3 (0.9-3.2); Mean Corpuscular HGB Conc 30.8 g/dl (32-36); Mean Corpuscular Hemoglobin 29.2 pg (26-34); Nucleated Red Blood Cells Absolute Auto 0.000 K/mm3 (0.0-0.012); Nucleated Red Blood Cells Perc 0.0 % (0.0-0.2); Platelet Count Result 234 k/mm3 (150-375)
[2024-08-28 13:02] LABS: Alanine Aminotransferase 41 U/L (6-35); Albumin Level 4.4 g/dL (3.5-5.1); Alkaline Phosphatase 89 U/L (38-126); Anion Gap 10 mmol/L (4-12); Aspartate Amino Transferase 52 U/L (14-36); Bilirubin,Total 0.4 mg/dL (0.2-1.3); Blood Urea Nitrogen 14 mg/dL (7-17); Calcium 9.2 mg/dL (8.4-10.2); Carbon Dioxide 25 mmol/L (22-30); Chloride 104 mmol/L (98-107); Cholesterol 182 mg/dL (0-200); Estimated Glomerular Filt Rate > 60; Glucose 114 mg/dL (65-110); HDL Direct 60 mg/dL; Potassium 4.1 mmol/L (3.4-5.0); Sodium 139 mmol/L (137-145); Total Protein 7.6 g/dL (6.3-8.2); Triglycerides 116 mg/dL (<150)
[2024-08-28 13:23] LABS: MALB Creatinine Ratio 66.7 mg/g (0-30)
[2024-08-28 13:31] LABS: Thyroid Stimulating Hormone 0.957 uIU/mL (0.465-4.680)
[2024-08-28 14:52] LABS: Hemoglobin A1C. 6.3 % (<5.7)
== END 2024-08-28 09:12 | disposition home or self-care (01) ==
PROVIDERS: PCP Nurse Practitioner Family; Visit Provider Nurse Practitioner Family
DX: E78.2 Mixed hyperlipidemia (principal); E11.9 Type 2 diabetes mellitus without complications; E03.8 Other specified hypothyroidism; E06.3 Autoimmune thyroiditis; Z00.00 Encounter for general adult medical examination without abnormal findings; I47.10 Supraventricular tachycardia, unspecified
CPT/HCPCS: 36415; 80053; 80061; 82043; 83036; 84443; 85025

== ENCOUNTER 2025-02-11 11:28 | Outpatient (CLI) | payer OTHER, SELFPAY ==
[2025-02-11 12:09] LABS: Alanine Aminotransferase 40 U/L (6-35); Albumin Level 4.3 g/dL (3.5-5.1); Alkaline Phosphatase 93 U/L (38-126); Anion Gap 8 mmol/L (4-12); Aspartate Amino Transferase 40 U/L (14-36); Bilirubin,Total 0.5 mg/dL (0.2-1.3); Blood Urea Nitrogen 17 mg/dL (7-17); Calcium 9.2 mg/dL (8.4-10.2); Carbon Dioxide 26 mmol/L (22-30); Chloride 104 mmol/L (98-107); Estimated Glomerular Filt Rate > 60; Glucose 113 mg/dL (65-110); Potassium 4.1 mmol/L (3.4-5.0); Sodium 138 mmol/L (137-145); Total Protein 7.5 g/dL (6.3-8.2)
[2025-02-11 12:15] LABS: Hemoglobin A1C 6.5 % (<5.7)
--- OUTSIDE RECORDS SUMMARY | 2025-02-11 13:56 | XMS_ITS | Clinical Summary ---
Author Organization [facility] Address [address] [place] [address] Care Team Providers Care Cotton Gin Yard Supervisor Name Role Phone Kait Owens DO Primary Care Provider Allergies No known active allergies Medications ZOVIA 135E, 28, 1-35 mg-mcg Tablet TK 1 T [...] A M CDT Height 170.2 cm (5' 7) 08/09/2018 10:04 AM CDT Body Mass Index 41.1 08/09/2018 10:04 AM CDT Plan of Treatment Health Maintenance Due Date Last Done Comments Pre-Diabetes and Diabetes Screening 1972 DTAP/TDAP/TD VACCINES (1 - Tdap) 01/12/1991 HEPATITIS B VACCINES (1 of 3 - 19+ 3-dose series) 12/28 HPV/Cotest (21-29) 01/12/1993 CERVICAL CANCER SCREENING 01/12/2002 HPV/Cotest (30-65) 01/12/2002 PAP SMEAR 01/12/2002 BREAST CANCER SCREENING 2012 COLORECTAL SCREENING 01/12/2017 Colorectal Cancer Screening 01/12/2017 FIT-DNA Q 3 years 01/12/2017 FIT/FOBT Q 1 year 01/12/2017 Flex Sig/CT Colonography Q 5 years 01/12/2017 ZOSTER VACCINE (1 of 2) 01/12/2022 INFLUENZA VACCINE (#1) [address] [place] [id number] [employer] PPO [id number] [place] [address] Care Teams Cotton Gin Yard Supervisor Relationship Specialty Start Date End Date Kait Owens DO [address] [place] [phone] PCP - General Family Practice 10/17/17
== END 2025-02-11 11:29 | disposition home or self-care (01) ==
LOC: ANHLAB 11:31
PROVIDERS: PCP Nurse Practitioner Family; Visit Provider Nurse Practitioner Family
DX: E11.9 Type 2 diabetes mellitus without complications (principal)
CPT/HCPCS: 36415; 80053; 83036